=== PATIENT | female | born 1970 | race Caucasian/White ===

== ENCOUNTER 2016-03-19 21:14 | Emergency (ER) | payer OTHER ==
[~2016-03-19] VITALS: Ht 167.6 cm; Wt 117.5 kg
[~2016-03-19 21:14] MED LIST: ALBUAER19 INH; AMIT10TA6 PO; CITA20TA9 PO; CLOTCRE33 TOP; HYDR12.56 PO; IBUP-1427 PO; MULT-506 PO; NSNN50; OMEGCAP2 PO; ONDA4TAB46 PO; OXYC-643 PO; OXYC1TAB3 PO; PROM25TA PO; RANI150C4 PO
[2016-03-19 21:18] VITALS: TEMP 37.1; Ht 167.6 cm; Wt 117.5 kg
[2016-03-19] MEDS ORDERED: KETOROLAC TROMETHAMINE 30 MG/ML VIAL IV STA (21:58)
[2016-03-19] MEDS ORDERED: SODIUM CHLORIDE 0.9% 1000ML 1,000 ML IV ONE (22:00)
[2016-03-19] MEDS ORDERED: OPTIRAY 320 IV PRN (22:15)
[2016-03-19 22:31] LABS: BASO % 0.9 %; BASO ABS # 0.06 K/uL (0-0.2); COMPLETE YES; EOS % 3.8 %; HEMATOCRIT 40.4 % (37-47); IG% 0.1 %; LYMPH % 41.2 %; MEAN CELL VOLUME 93.5 fL (80-100); MEAN CORPUSCULAR HEMOGLOBIN 32.4 pg (25-34); MEAN CORPUSCULAR HGB CONC 34.7 g/dl (32-36); MEAN PLATELET VOLUME 9.2 fL (7.4-10.4); PLATELET COUNT 255 K/uL (130-400); RED BLOOD COUNT 4.32 M/uL (4.2-5.4); WHITE BLOOD COUNT 6.79 K/uL (4.8-10.8)
[2016-03-19 22:48] LABS: BUN/CREATININE RATIO 13.6 (10-20); CALCIUM 9.7 mg/dl (8.5-10.1); CREATININE 1.2 mg/dl (0.60-1.20); POTASSIUM 4.3 mmol/L (3.5-5.1)
[2016-03-19 22:59] LABS: ALB/GLOB RATIO 1.1 (0.9-2); THYROID STIMULATING HORMONE 1.93 uIu/ml (0.300-4.500)
[2016-03-20 00:49] LABS: URINE APPEARANCE CLEAR (CLEAR); URINE BILIRUBIN NEG (NEG); URINE COLOR YELLOW; URINE NITRITE NEG (NEG); URINE SPECIFIC GRAVITY > 1.045 (1.000-1.030); UROBILINOGEN NEG (NEG); ZZUR CULT IF INDIC CLEAN CATCH NO
[2016-03-20 00:52] LABS: MANUAL MICROSCOPIC REQUIRED? NO; REVIEW REQ? NO
[2016-03-20] MEDS ORDERED: PRED50TA PO (00:53)
[2016-03-20] MEDS ORDERED: AZIT250T PO (00:53)
[2016-03-20] MEDS ORDERED: NORCO 5/325MG HOME PACK PO ONE (01:00)
[2016-03-20] MEDS ORDERED: AZITHROMYCIN 250 MG TAB PO ONE (01:00)
[2016-03-20 01:10] VITALS: BP 149/87; PULSE 68; O2SAT 100
--- NOTE | 2016-03-20 04:32 | EMERGENCY ROOM VISIT NOTE ---
History First contact with patient: 21:48 Chief Complaint: OTHER COMPLAINT Stated Complaint: PAIN IN RT SIDE OF CHEST AND BACK History of Present Illness The patient is a 45 year old female who presents to the Emergency Room with complaints of right-sided chest and back pain that has worsened since about 9: 00 AM, roughly 13 hours ago. The patient states that she got her children to school, when she began having her discomfort. She was not doing anything at the time of onset. The patient has a history of Nathalie's disease, and has been doing physical therapy to assist with walking. She states that she has had difficulty with ambulation today, which is a change from baseline. Her chest and back pain worsens with certain positions and twisting. She has not had recent travel history or history of DVT/PE. Heart the patient is without fever, chills, shortness of breath, or abdominal pain. No radiation of her pain. She states at times it is sharp in nature. She has been using the bathroom as normal. She took tramadol about 6 hours ago without any relief of discomfort. She rates her current pain an 8/10. Review of Systems More than 10 systems were reviewed and otherwise negative with the exception of history of present illness. Past Medical/Surgical History Medical Problems: (1) Depression (2) Diabetes (3) Diabetes mellitus (4) HTN (hypertension) (5) Hyperlipidemia Family History Cancer Diabetes mellitus FHx: gallbladder disease Heart disease Hypertension Kidney disease Kidney stones Social History Smoking Status: Current Every Day Smoker Alcohol Use: occasionally Drug Use: none Marital Status: Occupation Status: employed Current/Historical Medications Scheduled Amantadine Hcl (Symmetrel), 100 MG PO TID Amitriptyline Hcl (Elavil), 10 MG PO HS Azithromycin (Zithromax), 250 MG PO DAILY Bupropion Hcl (Wellbutrin Sr), 150 MG PO BID Buspirone Hcl (Buspirone Hcl), 10 MG PO BID Calcium Carbonate (Tums), 500 MG PO TID Citalopram Hydrobromide (Celexa), 40 MG PO DAILY Dicyclomine Hcl (Bentyl), 10 MG PO TID Hydrochlorothiazide (Hctz), 12.5 MG PO DAILY Lisinopril (Prinivil), 5 MG DAILY Metformin Hcl (Glucophage), 500 MG PO BID Multivitamin (Multivitamin), 1 TAB PO DAILY York-3 Fatty Acids (Fish Oil), 1 CAP PO DAILY Prednisone (Prednisone), 50 MG PO DAILY Ranitidine Hcl (Ranitidine Hcl), 300 MG PO QAM Simvastatin (Zocor), 20 MG PO QAM Scheduled PRN Albuterol Inhaler (Ventolin Inhaler), 2 PUFFS INH Q4 PRN for SOB/Wheezing Clotrimazole W/ Betamethasone (Lotrisone), 1 APPLN TOP BID PRN for PRN Hydroxyzine Hcl (Atarax), 25 MG PO TID PRN for Anxiety Ibuprofen Tab (Motrin), 600 MG PO TID PRN for FOSTER/Cramping/Fever Mometasone Furoate (Nasal) (Nasonex), 2 SPRAY NA DAILY PRN for PRN Ondansetron Hcl (Zofran), 4 MG PO Q4H PRN for Nausea Oxycodone Hcl (Oxycodone Hcl), 5 MG PO Q4H PRN for Pain Oxycodone Ir (Roxicodone Ir), 1 TAB PO Q6H PRN for Pain Oxycodone/Acetaminophen 5MG/325MG (Oxycodone/Acetaminophen 5MG/325MG), 2 TABLETS PO Q4H PRN for Pain Promethazine (Phenergan), 25 MG PO Q6H PRN for Nausea or Vomiting Tramadol (Ultram), 50 MG PO Q4H PRN for Pain Allergies Coded Allergies: No Known Allergies (Verified , 04/19/15) Physical Exam Vital Signs Date Time Temp Pulse Resp B/P Pulse Ox O2 Delivery O2 Flow Rate FiO2 03/20/16 01:10 68 18 149/87 100 03/20/16 00:06 66 18 170/94 100 Room Air 03/19/16 22:52 75 20 140/96 95 Room Air 03/19/16 21:18 37.1 78 18 96 Room Air Physical Exam VITALS: Vitals are noted on the nurse's note and reviewed by myself. Vital signs stable. GENERAL: Well-developed, well-nourished, white female who does appear somewhat uncomfortable on examination. HEAD: Normocephalic atraumatic. NECK: Supple without nuchal rigidity. No lymphadenopathy. No thyromegaly. Cervical spine is nontender. HEART: Regular rate and rhythm without murmurs gallops or rubs. LUNGS: Clear to auscultation bilaterally without wheezes, rales or rhonchi. No retractions or accessory muscle use. CHEST WALL: No rash or lesions. No obvious palpable tenderness throughout the chest wall. ABDOMEN: Positive normal bowel sounds x 4. Soft, nontender, without masses or organomegaly. No guarding or rebound tenderness. MUSCULOSKELETAL: No muscle atrophy, erythema, or edema noted. Full range of motion without joint tenderness in all extremities. Negative Homans sign. Medical Decision & Procedures ER Provider Diagnostic Interpretation: Preliminary Findings Only See Final Report For Complete Findings CTA CHEST: Compared to 06/20/2012. No evidence of pulmonary embolism or aortic dissection. Mild peribronchial thickening. Tiny pulmonary nodules. No pneumothorax or pleural effusion. Laboratory Results 03/19/16 22:20 Red Blood Count 4.32, Mean Corpuscular Volume 93.5, Mean Corpuscular Hemoglobin 32.4, Mean Corpuscular Hemoglobin Concent 34.7, Mean Platelet Volume 9.2, Neutrophils (%) (Auto) 50.0, Lymphocytes (%) (Auto) 41.2, Monocytes (%) (Auto) 4.0, Eosinophils (%) (Auto) 3.8, Basophils (%) (Auto) 0.9, Neutrophils # (Auto) 3.39, Lymphocytes # (Auto) 2.80, Monocytes # (Auto) 0.27, Eosinophils # (Auto) 0.26, Basophils # (Auto) 0.06 03/19/16 22:20 Test 03/19/16 22:20 03/19/16 22:27 03/20/16 00:35 White Blood Count 6.79 K/uL (4.8-10.8) Red Blood Count 4.32 M/uL (4.2-5.4) Hemoglobin 14.0 g/dL (12.0-16.0) Hematocrit 40.4 % (37-47) Mean Corpuscular Volume 93.5 fL (80-100) Mean Corpuscular Hemoglobin 32.4 pg (25-34) Mean Corpuscular Hemoglobin Concent 34.7 g/dl (32-36) Platelet Count 255 K/uL (130-400) Mean Platelet Volume 9.2 fL (7.4-10.4) Neutrophils (%) (Auto) 50.0 % Lymphocytes (%) (Auto) 41.2 % Monocytes (%) (Auto) 4.0 % Eosinophils (%) (Auto) 3.8 % Basophils (%) (Auto) 0.9 % Neutrophils # (Auto) 3.39 K/uL (1.4-6.5) Lymphocytes # (Auto) 2.80 K/uL (1.2-3.4) Monocytes # (Auto) 0.27 K/uL (0.11-0.59) Eosinophils # (Auto) 0.26 K/uL (0-0.5) Basophils # (Auto) 0.06 K/uL (0-0.2) RDW Standard Deviation 48.3 fL (36.4-46.3) RDW Coefficient of Variation 14.1 % (11.5-14.5) Immature Granulocyte % (Auto) 0.1 % Immature Granulocyte # (Auto) 0.01 K/uL (0.00-0.02) Anion Gap 13.0 mmol/L (3-11) Est Creatinine Clear Calc Drug Dose 78.0 ml/min Estimated GFR () 63.7 Estimated GFR (Non- 54.9 BUN/Creatinine Ratio 13.6 (10-20) Calcium Level 9.7 mg/dl (8.5-10.1) Total Bilirubin 0.2 mg/dl (0.2-1) Aspartate Amino Transf (AST/SGOT) 11 U/L (15-37) Alanine Aminotransferase (ALT/SGPT) 26 U/L (12-78) Alkaline Phosphatase 85 U/L (45-117) Total Protein 7.3 gm/dl (6.4-8.2) Albumin 3.8 gm/dl (3.4-5.0) Globulin 3.5 gm/dl (2.5-4.0) Albumin/Globulin Ratio 1.1 (0.9-2) Lipase 234 U/L (73-393) Thyroid Stimulating Hormone (TSH) 1.930 uIu/ml (0.300-4.500) Bedside Troponin I 0.000 ng/ml (0-0.045) Urine Color YELLOW Urine Appearance CLEAR (CLEAR) Urine pH 5.0 (4.5-7.5) Urine Specific [place] > 1.045 (1.000-1.030) Urine Protein NEG (NEG) Urine Glucose (UA) NEG (NEG) Urine Ketones NEG (NEG) Urine Occult Blood NEG (NEG) Urine Nitrite NEG (NEG) Urine Bilirubin NEG (NEG) Urine Urobilinogen NEG (NEG) Urine Leukocyte Esterase NEG (NEG) Medications Administered Medications (Trade) Dose Ordered Sig/Rodolfo Route Start Time Stop Time Status Last Admin Dose Admin Sodium Chloride (Nss 1000ml) 1,000 ml @ 999 mls/hr Q1H1M ONCE IV 03/19/16 22:00 03/19/16 23:00 DC 03/19/16 22:51 999 MLS/HR Ketorolac Tromethamine (Toradol Inj) 30 mg NOW STAT IV 03/19/16 21:58 03/19/16 22:00 DC 03/19/16 22:51 30 MG Azithromycin (Zithromax Tab) 500 mg NOW ONCE PO 03/20/16 01:00 03/20/16 01:01 DC 03/20/16 01:05 500 MG Acetaminophen/ Hydrocodone Bitart (Gilsum 5/325mg Home Pack) 1 homepack UD ONCE PO 03/20/16 01:00 03/20/16 01:01 DC 03/20/16 01:05 1 HOMEPACK ED Course Physical exam and history were performed. Nursing notes and EMR were reviewed. Patient appears to have right-sided chest pain with a history of [place]'s disease. The patient symptoms do seem to be somewhat musculoskeletal, as certain positions exacerbate her discomfort. I'm not able to elicit any distinct palpable tenderness however. IV access was established and labs were obtained. EKG was normal sinus rhythm at 72 bpm without ischemia or ectopy. EKG is essentially unchanged from EKG of 04/19/2013. The patient was placed on the compliance monitor. She was hydrated with normal saline and given 30 mg IV Toradol for comfort. Because of her history and on nature of pain, I did elect for CT scan of the chest with contrast. The patient was reevaluated multiple times in the course of her stay. Her blood work is as above and was reviewed. She does not have a significantly elevated white blood cell count, anemia, bandemia, or gross electrolyte imbalance. Troponin 1 is negative. Lipase and transaminases are nondiagnostic. CT scan of her chest does not show evidence of pulmonary embolism or pneumonia. There is some mild peribronchial thickening. TSH is normal. Urine is without obvious signs of infection. Overall the patient appears stable for discharge home. I suspect that her symptoms may be related to a musculoskeletal cause, or possibly an early bronchitis. Because of her comorbidities I will start her on Zithromax and prednisone. She will need close follow-up with primary care physician, and I recommended that she be seen in the next 1-2 days in her PCPs office. She was thoroughly invited to the emergency department again if she has any worsening of her symptoms. The patient voiced understanding of this plan and was pleased with plan of care. She was discharged home with family in good condition. The chart was completed utilizing [employer] Speech Voice Recognition Software. Grammatical errors, random word insertions, pronoun errors, and incomplete sentences are an occasional consequence of this system due to software limitations, ambient noise, and hardware issues. Any formal questions or concerns about the content, text, or information contained within the body of this dictation should be directly addressed to the provider for clarification. . Medical Decision Differential diagnosis includes, but is not limited to: Myocardial infarction, dysrhythmia, pericarditis, pneumothorax, aortic aneurysm/dissection, DVT/PE, anxiety, GERD, PUD, electrolyte imbalance, thyroid disorder, pneumonia, bronchitis, pancreatitis, and others Impression Primary Impression: Right-sided chest pain Departure Information Prescriptions Prednisone (Prednisone) 50 Mg Tab 50 MG PO DAILY for 4 Days, #4 TAB Prov: Elías Mane PA-C 03/20/16 Azithromycin (Zithromax) 250 Mg Tab 250 MG PO DAILY for 4 Days, #4 TAB Prov: Elías Mane PA-C 03/20/16 Referrals aMndi Johnson M.D. (PCP) Patient Instructions My [facility]
--- NOTE | 2016-03-20 07:13 | DIAGNOSTIC IMAGING REPORT ---
CT ANGIOGRAM OF THE CHEST CLINICAL HISTORY: Right-sided chest pain. Suspected pulmonary embolism. COMPARISON STUDY: 06/20/2012 TECHNIQUE: Following the IV administration of 92 mL of Optiray-320, CT angiogram of the thorax was performed from the thoracic inlet to the lung bases utilizing the pulmonary embolus protocol. Images are reviewed in the axial, sagittal, and coronal planes. IV contrast was administered without complication. MIP imaging was performed. CT DOSE: 759.77 mGy.cm FINDINGS: No pathologically enlarged axillary mediastinal or hilar lymph nodes were visualized. There was no evidence of thoracic aortic dilatation. There were no pulmonary artery filling defects to indicate acute pulmonary embolism. No pleural effusions are visualized. There is no evidence of focal pulmonary consolidation. There is a 3 mm right middle lobe perifissural nodule. This remain stable. There is a 3 mm right upper lobe pulmonary nodule image #[id number]. This was not visualized the prior study. There is a 3 mm left lower lobe pulmonary nodule image #[id number]. This remain stable. IMPRESSION: 1. No CT evidence of acute pulmonary embolism 2. Bilateral 3 mm pulmonary nodules. The right upper lobe 3 mm nodule was not visualized on the prior 2013 study. In a low risk patient, no further follow-up is needed. In a high risk patient, 12 month follow-up would be recommended. 3. No evidence of focal pulmonary consolidation Please refer to below summary of Fleischner criteria recommendations for follow-up of incidental CT nodules (Marie Colunga, Guidelines for management of small pulmonary nodules detected on CT scans: A statement from the Fleischner Society, Radiology 237: [phone].) Low Risk Patient: Minimal or no smoking or other known risk factors for malignancy <=4 mm: No follow-up needed. >4-6 mm: Initial follow-up CT at 12 months; if unchanged, no further follow-up. >6-8 mm: Initial follow-up CT at 6-12 months then at 18-24 months if no change. >8 mm: Follow-up CT at \R\3, 9, 24 months, or PET and/or biopsy. High Risk Patient: History of smoking or other known risk factors <=4 mm: Follow-up at 12 months; if unchanged, no further follow-up. >4-6 mm: Initial follow-up CT at 6-12 months then at 18-24 months if no change. >6-8 mm: Initial follow-up CT at 3-6 months then at 9-12 and 24 months if no change. >8 mm: Same as low risk patient. Note: Nodule size measured as average of length and width. Ground glass or partly solid nodules may require longer follow-up to exclude indolent adenocarcinoma. Electronically signed by: Lm Rizo M.D. 03/20/2016 7:11 AM Dictated Date/Time: 03/20/2016 7:03 AM
[2016-03-23] MEDS ORDERED: OXYC1CAP5 PO (09:27)
[2016-03-23] MEDS ORDERED: SIMV20TA2 PO (09:43)
[2016-03-23] MEDS ORDERED: BUPR150T7 PO (10:55)
[2016-03-23] MEDS ORDERED: LISI5TAB PO (10:55)
[2016-03-23] MEDS ORDERED: GLC/500 PO (10:55)
[2016-03-23] MEDS ORDERED: CALC500C3 PO (10:55)
[2016-03-23] MEDS ORDERED: AMAN100T PO (20:26)
[2016-03-23] MEDS ORDERED: TRAM-10 PO (20:26)
[2016-03-23] MEDS ORDERED: HYDR-389 PO (20:27)
[2016-03-23] MEDS ORDERED: DICY10CA55 PO (20:32)
[2016-03-23] MEDS ORDERED: BUSP-8 PO (20:32)
== END 2016-03-20 01:10 | disposition home or self-care (01) ==
LOC: C.EDB 21:15 → C.EDA 03-20 01:10
DX: R07.9 Chest pain, unspecified (principal); G10 Huntington's disease; F32.9 Major depressive disorder, single episode, unspecified; E11.9 Type 2 diabetes mellitus without complications; I10 Essential (primary) hypertension; E78.5 Hyperlipidemia, unspecified; Z83.3 Family history of diabetes mellitus; Z82.49 Family history of ischemic heart disease and other diseases of the circulatory system; F17.210 Nicotine dependence, cigarettes, uncomplicated; Z79.899 Other long term (current) drug therapy

== ENCOUNTER 2016-03-23 20:46 | Emergency (ER) | payer OTHER ==
[~2016-03-23] VITALS: Ht 167.6 cm; Wt 113.0 kg
[~2016-03-23 20:46] MED LIST changes: +AMAN100T PO; +AZIT250T PO; +BUPR150T7 PO; +BUSP-8 PO; +CALC500C3 PO; +DICY10CA55 PO; +GLC/500 PO; +HYDR-389 PO; +LISI5TAB PO; +OXYC1CAP5 PO; +PRED50TA PO; +SIMV20TA2 PO; +TRAM-10 PO
[2016-03-23 20:54] VITALS: Ht 167.6 cm; Wt 113.0 kg
[2016-03-23] MEDS ORDERED: PROM25TA16 PO (21:35)
[2016-03-23] MEDS ORDERED: FLUT0.15 NAE (21:35)
[2016-03-23] MEDS ORDERED: PANT40TA PO (21:35)
[2016-03-23] MEDS ORDERED: DOCU100C31 PO (21:35)
[2016-03-23] MEDS ORDERED: PRVHFAIN INH (21:35)
[2016-03-23] MEDS ORDERED: ESCI10TA17 PO (21:35)
[2016-03-23] MEDS ORDERED: GABA-112 PO (21:35)
[2016-03-23] MEDS ORDERED: POLY1POW2 PO (21:35)
[2016-03-23] MEDS ORDERED: RISP0.5T10 PO ×2 (21:35)
[2016-03-23] MEDS ORDERED: RANI300T PO (21:35)
[2016-03-23 22:10] LABS: BASO % 0.1 %; BASO ABS # 0.01 K/uL (0-0.2); COMPLETE YES; HEMATOCRIT 38.4 % (37-47); IG% 0.3 %; LYMPH % 7.4 %; LYMPH ABS # 0.69 K/uL (1.2-3.4); MEAN CELL VOLUME 91.9 fL (80-100); MEAN CORPUSCULAR HEMOGLOBIN 31.8 pg (25-34); MEAN CORPUSCULAR HGB CONC 34.6 g/dl (32-36); MEAN PLATELET VOLUME 9.6 fL (7.4-10.4); MONO % 0.9 %; NEUT % 91.3 %; PLATELET COUNT 263 K/uL (130-400); RED BLOOD COUNT 4.18 M/uL (4.2-5.4); WHITE BLOOD COUNT 9.33 K/uL (4.8-10.8)
--- NOTE | 2016-03-23 22:25 | DIAGNOSTIC IMAGING REPORT ---
ULTRASOUND VENOUS DOPP LOWER EXT UNILAT CLINICAL HISTORY: Right leg swelling. COMPARISON STUDY: No previous studies for comparison. FINDINGS: Real-time and color flow Doppler imaging were performed. Flow was seen within the femoral, popliteal and calf veins with no intraluminal thrombus demonstrated. The saphenous vein is patent. IMPRESSION: No evidence of right lower extremity DVT. Electronically signed by: Lm Rizo M.D. 03/23/2016 10:24 PM Dictated Date/Time: 03/23/2016 10:23 PM
[2016-03-23 22:33] LABS: ALB/GLOB RATIO 1.1 (0.9-2); ALKALINE PHOSPHATASE 87 U/L (45-117); ALT/SGPT 24 U/L (12-78); BLOOD UREA NITROGEN 17 mg/dl (7-18); BUN/CREATININE RATIO 14.2 (10-20); CALCIUM 8.9 mg/dl (8.5-10.1); CARBON DIOXIDE 24 mmol/L (21-32); CHLORIDE 102 mmol/L (98-107); GLUCOSE 322 mg/dl (70-99); SODIUM 139 mmol/L (136-145)
[2016-03-23 22:43] LABS: BETA-HYDROXYBUTYRATE 1.32 mg/dL (0.2-2.81)
[2016-03-23 23:24] LABS: PARTIAL THROMBOPLASTIN RATIO 0.9; PROTHROMBIN TIME (PATIENT) 10.2 SECONDS (9.0-12.0)
[2016-03-23 23:57] LABS: MAGNESIUM 2.1 mg/dl (1.8-2.4); POTASSIUM 4.6 mmol/L (3.5-5.1)
[2016-03-24 00:49] VITALS: BP 133/78; PULSE 77; TEMP 36.8; O2SAT 96
--- NOTE | 2016-03-24 04:41 | EMERGENCY ROOM VISIT NOTE ---
History First contact with patient: 21:24 Chief Complaint: SWELLING TO EXTREMITY Stated Complaint: PAIN AND SWELLING IN RIGHT LEG History of Present Illness The patient is a 45 year old female who presents to the Emergency Room with complaints of right pain and swelling for the past week who was here the other day had a negative CTA. Patient is concerned she has a blood clot in the right leg. Patient has Nathalie's disease. Patient denies chest pain, dyspnea, fever, chills, numbness, tingling, dysphagia, localized weakness. No recent travel. She does smoke. No control. No history of PE or DVT. No injury to the area. Review of Systems See HPI for pertinent positives & negatives. A total of 10 systems reviewed and were otherwise negative. Past Medical/Surgical History Medical Problems: (1) Depression (2) Diabetes (3) Diabetes mellitus (4) HTN (hypertension) (5) Hyperlipidemia Family History Cancer Diabetes mellitus FHx: gallbladder disease Heart disease Hypertension Kidney disease Kidney stones Social History Smoking Status: Current Every Day Smoker Alcohol Use: occasionally Drug Use: none Marital Status: Occupation Status: employed Current/Historical Medications Scheduled Amantadine Hcl (Symmetrel), 100 MG PO TID Bupropion Hcl (Wellbutrin Sr), 150 MG PO DAILY Buspirone Hcl (Buspirone Hcl), 10 MG PO BID Calcium Carbonate (Tums), 500 MG PO TID Dicyclomine Hcl (Bentyl), 10 MG PO HOLD Escitalopram (Lexapro), 10 MG PO DAILY Gabapentin (Neurontin), 100 MG PO TID Lisinopril (Prinivil), 5 MG PO DAILY Metformin Hcl (Glucophage), 500 MG PO BIDM Pantoprazole (Protonix), 40 MG PO DAILY Ranitidine Hcl (Zantac), 300 MG PO BID Risperidone (Risperdal), 0.25 MG PO QAM Risperidone (Risperdal), 0.5 MG PO HS Simvastatin (Zocor), 20 MG PO HS Scheduled PRN Albuterol (Ventolin Hfa), 2 PUFFS INH QID PRN for SOB/Wheezing Docusate Sodium (Docusate Sodium), 200 MG PO DAILY PRN for Constipation Fluticasone Propionate (Nasal) (Flonase Allergy Relief), 2 SPRAYS BRITTANY DAILY PRN for Allergy symptoms Hydroxyzine Hcl (Atarax), 25 MG PO TID PRN for Anxiety Oxycodone Hcl (Oxycodone Hcl), 5 MG PO Q4H PRN for Pain Polyethylene Glycol 3350 (Bulk (Polyethylene Glycol 3350), 17 GM PO DAILY PRN for Constipation Promethazine HCl (Promethazine HCl), 25 MG PO Q6H PRN for Nausea Tramadol (Ultram), 50 MG PO Q8 PRN for Pain Allergies Coded Allergies: No Known Allergies (Verified , 04/19/15) Physical Exam Vital Signs Date Time Temp Pulse Resp B/P Pulse Ox O2 Delivery O2 Flow Rate FiO2 03/24/16 00:49 36.8 77 18 133/78 96 03/24/16 00:48 77 18 133/78 96 Room Air 03/23/16 23:42 77 18 161/91 96 Room Air 03/23/16 22:39 Room Air 03/23/16 20:54 36.8 79 18 167/93 96 Room Air Pain Rating (0-10): 4.0 Physical Exam VITALS: Vitals are noted on the nurse's note and reviewed by myself. Vital signs stable. GENERAL: Pleasant female, in no acute distress, nondiaphoretic, well-developed well-nourished. SKIN: Capillary reflex less than 2 seconds. HEENT: Normocephalic. PERRLA. EOMI. Nares patent. Mucous membranes moist. Neck is supple without nuchal rigidity. HEART: Regular rate and rhythm without murmurs gallops or rubs. LUNGS: Clear to auscultation bilaterally without wheezes, rales or rhonchi. No retractions or accessory muscle use. ABDOMEN: Positive bowel sounds x 4. Normal tympanic percussion. Soft, nontender, without masses or organomegaly. Andino sign negative. No guarding or rebound tenderness. MUSCULOSKELETAL: No gross musculoskeletal defects. No pedal edema. Right calf tenderness with minimal edema present. NEURO: Patient was alert and oriented to person place and time. Normal sensation to light and sharp touch. No focal neurological deficits. Medical Decision & Procedures Laboratory Results 03/23/16 22:00 Red Blood Count 4.18, Mean Corpuscular Volume 91.9, Mean Corpuscular Hemoglobin 31.8, Mean Corpuscular Hemoglobin Concent 34.6, Mean Platelet Volume 9.6, Neutrophils (%) (Auto) 91.3, Lymphocytes (%) (Auto) 7.4, Monocytes (%) (Auto) 0.9, Eosinophils (%) (Auto) 0.0, Basophils (%) (Auto) 0.1, Neutrophils # (Auto) 8.52, Lymphocytes # (Auto) 0.69, Monocytes # (Auto) 0.08, Eosinophils # (Auto) 0.00, Basophils # (Auto) 0.01 03/23/16 22:00 03/23/16 23:00 Test 03/23/16 22:00 03/23/16 23:00 White Blood Count 9.33 K/uL (4.8-10.8) Red Blood Count 4.18 M/uL (4.2-5.4) Hemoglobin 13.3 g/dL (12.0-16.0) Hematocrit 38.4 % (37-47) Mean Corpuscular Volume 91.9 fL (80-100) Mean Corpuscular Hemoglobin 31.8 pg (25-34) Mean Corpuscular Hemoglobin Concent 34.6 g/dl (32-36) Platelet Count 263 K/uL (130-400) Mean Platelet Volume 9.6 fL (7.4-10.4) Neutrophils (%) (Auto) 91.3 % Lymphocytes (%) (Auto) 7.4 % Monocytes (%) (Auto) 0.9 % Eosinophils (%) (Auto) 0.0 % Basophils (%) (Auto) 0.1 % Neutrophils # (Auto) 8.52 K/uL (1.4-6.5) Lymphocytes # (Auto) 0.69 K/uL (1.2-3.4) Monocytes # (Auto) 0.08 K/uL (0.11-0.59) Eosinophils # (Auto) 0.00 K/uL (0-0.5) Basophils # (Auto) 0.01 K/uL (0-0.2) RDW Standard Deviation 47.3 fL (36.4-46.3) RDW Coefficient of Variation 14.0 % (11.5-14.5) Immature Granulocyte % (Auto) 0.3 % Immature Granulocyte # (Auto) 0.03 K/uL (0.00-0.02) Anion Gap 13.0 mmol/L (3-11) Est Creatinine Clear Calc Drug Dose 76.3 ml/min Estimated GFR () 63.7 Estimated GFR (Non- 54.9 BUN/Creatinine Ratio 14.2 (10-20) Calcium Level 8.9 mg/dl (8.5-10.1) Total Bilirubin 0.2 mg/dl (0.2-1) Alanine Aminotransferase (ALT/SGPT) 24 U/L (12-78) Alkaline Phosphatase 87 U/L (45-117) Total Protein 7.1 gm/dl (6.4-8.2) Albumin 3.7 gm/dl (3.4-5.0) Globulin 3.4 gm/dl (2.5-4.0) Albumin/Globulin Ratio 1.1 (0.9-2) Beta-Hydroxybutyric Acid 1.32 mg/dL (0.2-2.81) Prothrombin Time 10.2 SECONDS (9.0-12.0) Prothromb Time International Ratio 1.0 (0.9-1.1) Activated Partial Thromboplast Time 24.4 SECONDS (21.0-31.0) Partial Thromboplastin Ratio 0.9 Magnesium Level 2.1 mg/dl (1.8-2.4) Aspartate Amino Transf (AST/SGOT) 10 U/L (15-37) Total Creatine Kinase 64 U/L (26-192) Chemistry Specimen Hemolysis ED Course Prior records reviewed and summarized above. Triage Nursing notes reviewed. Additional history obtained from the family. The patient's history was concerning for swelling and pain in the leg. Differential diagnosis: Etiologies such as DVT, musculoskeletal, infection, joint effusion, trauma, lymphedema, idiopathic, CHF, as well as others were entertained.. Physical examination: The physical examination revealed no signs of infection. Neurovascularly intact. ER treatment provided: Da aguilar On reassessment the patient felt better. Diagnostics interpreted by me: The labs revealed hyperglycemia without DKA. No leukocytosis Imaging studies: ULTRASOUND VENOUS DOPP LOWER EXT UNILAT CLINICAL HISTORY: Right leg swelling. COMPARISON STUDY: No previous studies for comparison. FINDINGS: Real-time and color flow Doppler imaging were performed. Flow was seen within the femoral, popliteal and calf veins with no intraluminal thrombus demonstrated. The saphenous vein is patent. IMPRESSION: No evidence of right lower extremity DVT. Electronically signed by: Lm Rizo M.D. 03/23/2016 10:24 PM This appears to be consistent with minimal leg swelling. No DVT. Hyperglycemia without DKA. She was fitted with DA hose and advised to follow- up with family care in a few days or here in the ER sooner for severe pain, numbness, tingling, fevers, worsening signs or symptoms or as needed. Patient was neurovascularly and neurologically intact. She was well-appearing. By the evaluation outlined above emergent etiologies such as DVT, septic joint, trauma , infection, CHF, as well as others were deemed relatively unlikely. The pt informed about the findings as listed above. All questions were answered and pleased with the treatment. Return instructions were outlined and the patient was discharged in stable condition. Referral: The patient was referred back to their primary care physician for follow-up in 2 to 3 days for a recheck of the current condition. Medical Decision As above Impression Primary Impression: Swelling of right lower extremity Additional Impression: hyperglycemia Departure Information Dispostion Home / Self-Care Condition GOOD Forms WORK / SCHOOL INSTRUCTIONS, HOME CARE DOCUMENTATION FORM, IMPORTANT VISIT INFORMATION Patient Instructions Hyperglycemia, [facility] [employer] Additional Instructions Monitor your blood sugar. Wear DA hose when up and about. Ibuprofen(Motrin, Advil) may be used for fever or pain. Use 600mg every six hours as needed. Take with food. Avoid using more than 2400mg in a 24 hour period. Do not use 2400mg per day for more than three consecutive days without physician direction. Prolonged inappropriate use can lead to stomach upset or ulcers. (AND/OR) Acetaminophen(Tylenol) may be used for fever or pain. Use 1000mg every six hours as needed. Avoid using more than 3000mg in a 24 hour period. Rest and drink plenty of fluids as tolerated. Continue current medications. Avoid strenuous activities and anything that worsens your pain. Resume normal activities once your symptoms resolve. Return to the ER immediately for worsening or persistent leg pain, abdominal pain, vomiting, fevers, chest pains, difficulty breathing, worsening of your condition, or as needed. Follow up with your primary physician in 2-3 days for a recheck of your current condition. Problem Qualifiers
== END 2016-03-24 00:50 | disposition home or self-care (01) ==
LOC: C.EDB 20:47 → C.EDC 03-24 00:50
DX: R22.41 Localized swelling, mass and lump, right lower limb (principal); E11.65 Type 2 diabetes mellitus with hyperglycemia; I10 Essential (primary) hypertension; E78.5 Hyperlipidemia, unspecified; F32.9 Major depressive disorder, single episode, unspecified; F17.200 Nicotine dependence, unspecified, uncomplicated; Z79.84 Long term (current) use of oral hypoglycemic drugs; Z79.899 Other long term (current) drug therapy; Z80.9 Family history of malignant neoplasm, unspecified; Z83.3 Family history of diabetes mellitus; Z83.79 Family history of other diseases of the digestive system; Z82.49 Family history of ischemic heart disease and other diseases of the circulatory system; Z84.1 Family history of disorders of kidney and ureter

== ENCOUNTER 2021-08-03 13:14 | Inpatient (IN) ==
[2021-08-03] MEDS ORDERED: SODIUM CHLORIDE 0.9% 1000ML 1,000 ML IV ONE (13:41)
[2021-08-03] MEDS ORDERED: ONDANSETRON INJ 2 MG/ML 2 ML VIAL IV STA (14:01)
[2021-08-03] MEDS ORDERED: ALBUT/IPRATROP 3MG/0.5MG NEB 3 ML VIAL NEB STA (14:01)
[2021-08-03] MEDS ORDERED: guaiFENesin 600 MG TABCR PO STA (14:01)
[2021-08-03] MEDS ORDERED: dexAMETHasone**PF** 10 MG/ML VIAL IV ONE (14:01)
[2021-08-03 14:03] LABS: Basophils # (auto) 0.01 K/uL (0-0.2); Basophils % (auto) 0.2 %; Eosinophils # (auto) 0.23 K/uL (0-0.5); Eosinophils % (auto) 3.8 %; Hematocrit (blood only) 28.7 % (37-47); Hemoglobin 8.8 g/dL (12.0-16.0); Immature Granulocytes # (auto) 0.01 K/uL (0.00-0.02); Immature Granulocytes % (auto) 0.2 %; Lymphocytes # (auto) 1.05 K/uL (1.2-3.4); Lymphocytes % (auto) 17.3 %; Mean Corpuscular Hemoglobin 23.7 pg (25-34); Mean Corpuscular Hgb Conc 30.7 g/dL (32-36); Mean Corpuscular Volume 77.2 fL (80-100); Mean Platelet Volume 8.7 fL (7.4-10.4); Monocytes # (auto) 0.48 K/uL (0.11-0.59); Monocytes % (auto) 7.9 %; Neutrophils # (auto) 4.29 K/uL (1.4-6.5); Neutrophils % (auto) 70.6 %; Platelet Count 254 K/uL (130-400); RDW Coefficient of Variation 19.9 % (11.5-14.5); RDW Standard Deviation 56.5 fL (36.4-46.3); Red Blood Count 3.72 M/uL (4.2-5.4); White Blood Count 6.07 K/uL (4.8-10.8)
--- NOTE | 2021-08-03 14:19 | XRay Report ---
XR chest 1V portable HISTORY: 51 years-old Female Chest Pain acute atypical chest pain COMPARISON: CT chest 03/19/2016 TECHNIQUE: Portable AP view of the chest FINDINGS: The cardiac silhouette is mildly enlarged. No pneumothorax, pleural effusion or overt pulmonary edema . Ill-defined 5.3 cm airspace opacity of the lateral right mid to lower lung. Bones appear grossly in tact. IMPRESSION: Ill-defined 5.3 cm airspace opacity of the lateral right mid to lower lung suspicious for pneumonia. Follow-up imaging after treatment course is recommended to exclude an underlying lesion. ACT 112: Negative or not required by law. The above report was generated using voice recognition software. It may contain grammatical, syntax o r spelling errors. Electronically signed by: Tuan Quintana M.D. 08/03/2021 2:18 PM
[2021-08-03 14:47] LABS: Influenza A virus by PCR Negative (Neg); Influenza B virus by PCR Negative (Neg); RSV by PCR Negative (Neg); SARS CoV2 RNA(COVID-19) InHosp NEGATIVE (Negative)
[2021-08-03 14:48] LABS: Troponin I High Sensitivity 14.6 pg/ml (0-14)
[2021-08-03 14:50] LABS: Alanine Aminotransferase 7 U/L (7-52); Albumin Level 3.6 gm/dl (3.4-5.0); Alkaline Phosphatase 93 U/L (34-104); Anion Gap 7 (3-11); Aspartate Aminotransferase 8 U/L (13-39); BUN Creatinine Ratio 8.6 (10-20); Bilirubin,Total 0.4 mg/dl (0.2-1.0); Blood Urea Nitrogen 12 mg/dl (6-23); Calcium 9.1 mg/dl (8.5-10.1); Carbon Dioxide 27 mmol/L (21-32); Chloride 101 mmol/L (98-107); Est GFR (African American) 50.6 ml/min; Est GFR (Non-African American) 43.7 ml/min; Globulin 3.5 gm/dl (2.5-4.0); Glucose 158 mg/dl (70-99(Fasting)); Lipase 25 U/L (11-82); Phosphorus 3.7 mg/dl (2.5-4.9); Potassium 3.7 mmol/L (3.5-5.1); Sodium 135 mmol/L (136-145); Total Protein 7.1 gm/dl (6.0-8.3)
[2021-08-03] MEDS ORDERED: AZITHROMYCIN 500 MG in DEXTROSE 5% 250 ML IV STA (17:02)
[2021-08-03] MEDS ORDERED: cefTRIAXone SODIUM 2,000 MG/70 ML BAG IV STA (17:02)
--- NOTE | 2021-08-03 17:36 | Emergency Department Note ---
Impression & Plan Pneumonia, COPD (chronic obstructive pulmonary disease), Complete left bundle branch block, Elevated troponin, CKD (chronic kidney disease), stage III ED Provider Note NAME: SAVANA BROWNING AGE: 51 SEX: F ARRIVES VIA: Walk-In INFORMANT: Patient, ED PROVIDER(S): Jean Claude Toro MD CHIEF COMPLAINT: SOB PLAN: Disposition: Admit MEDICAL DECISION MAKING: The patient is a pleasant 51-year-old woman with a past medical history of COPD, diabetes, hypertension, hyperlipidemia, Bostwick disease who presents to the emegency department accompanied by her for evaluation of worsening shortness of breath with cough and productive sputum over the past several days. She denies any fevers, nausea, vomiting, diarrhea or urinary symptoms. She is vaccinated for COVID-19 including her booster. On arrival the patient is uncomfortable mildly dyspneic but no acute distress, afebrile with HR 90s and otherwise stable vital signs. She has dry mucous membranes but chronic bilateral lower extremity edema. Lungs with diffuse wheezes bilaterally. Mild increased work of breathing. EKG demonstrates left bundle branch block which per review of records does appear to be new. No sgarbossa criteria. Unlikely to represent ACS given the patient has no acute onset chest pain. Chest x-ray is suspicious for pneumonia with consolidation of right mid-lower lobe. WBC and platelets within normal limits. H/H approximate to prior range of values. Creatinine 1.4, similar to prior values. Electrolytes without significant abnormality. LFTs unremarkable. High-sensitivity troponin marginally elevated at 14.6, nonspecific. Lipase not elevated. Upon reevaluation patient did feel somewhat improved after IV fluid hydration, Solu- Medrol Covid-19 PCR negative. Influenza and RSV PCR negative., DuoNeb, guaifenesin and Zofran. However she did still appear mildly dyspneic. Given the patient's COPD with chest x-ray demonstrated pneumonia the patient did agree with plan for admission for further management. Case was discussed with Leila Isbell, [place] PAC, with Dr. Thad Kumari hospitalist who will evaluate the patient for admission. Triage Nursing notes reviewed and agree them. Prior medical records reviewed Vital Signs: reviewed and remarkable for no significant abnormalities Differential diagnosis: Reactive airway disease, pneumonia, pneumothorax, COPD, CHF, infections, cardiac ischemia, pulmonary embolism, musculoskeletal, gastrointestinal, as well as other pathologies. ER treatment provided: See below. Diagnostics interpreted by me: ECG: Normal sinus rhythm, 87 bpm, no ectopy, left bundle branch block, no sgarbossa criteria. Left bundle branch block is new from EKG in 2019 and [facility] records. Cardiac Monitoring: An order for continuous cardiac monitoring was placed and demonstrated normal sinus rhythm, 87 bpm, no ectopy. Laboratory studies: See below Imaging studies: See below Consultation(s): Leila Isbell, [facility] PAC, with Dr. Thad Kumari hospitalist HPI: The patient is a pleasant 51-year-old woman with a past medical history of COPD, diabetes, hypertension, hyperlipidemia, Bostwick disease who presents emerged department accompanied by her for evaluation of worsening shortness of breath with cough and productive sputum over the past several days. She denies any fevers, nausea, vomiting, diarrhea or urinary symptoms. She is vaccinated for COVID-19 including her booster. ROS: See above HPI for pertinent positives & negatives. A total of 10 systems reviewed and were otherwise negative. VITALS:See Below PHYSICAL EXAMINATION: GENERAL: Awake, alert, ill-appearing, in no distress HENT: Normocephalic, atraumatic. Oropharynx with dry mucous membranes and otherwise unremarkable. EYES: Normal conjunctiva. Sclera non-icteric. NECK: Supple. No nuchal rigidity. FROM. No JVD. RESPIRATORY: Diffuse wheezes bilaterally. Mild increased work of breathing but no acute distress. CARDIAC: Regular rate, normal rhythm. Extremities warm and well perfused. Pulses equal. ABDOMEN: Soft, non-distended. No tenderness to palpation. No rebound or guarding. No masses. RECTAL: Deferred. MUSCULOSKELETAL: Chest examination reveals no tenderness. The back is symmetrical on inspection without obvious abnormality. There is no CVA tenderness to palpation. No joint edema. LOWER EXTREMITIES: Calves are equal size bilaterally and non-tender. 2+ BLE edema. No discoloration. NEURO: Masked facies. No focal sensory or motor deficits noted. SKIN: No rash or jaundice noted. 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 Father Family history of diabetes mellitus Social History Smoking Status: Current every day smoker Tobacco Type: Cigarettes Cigarettes Per Day: 1/2 - 1 ppd; Second Hand Exposure: Yes (MOTHER SMOKED); Hx Alcohol Use: No Hx Substance Use: No Preferred Language: Nauruan Communication Ability: Effective Media Developer Required: No Beliefs That Will Affect Care: None Current Living Situation: Spouse and Family Feels Safe at Home: Yes Assistive Devices: Glasses Allergies Allergies Allergy/AdvReac Type Severity Reaction Status Date / Time No Known Allergies Allergy Verified 08/03/21 15:01 Home Meds Home Medications Medication Instructions Recorded Confirmed albuterol sulfate 90 mcg/actuation 2 puff INHALATION QID PRN 12/14/19 08/03/21 aerosol inhaler (Ventolin HFA) amantadine HCl 100 mg capsule 100 mg PO TID 12/14/19 08/03/21 aspirin 81 mg tablet,delayed 81 mg PO HS 12/14/19 08/03/21 release bupropion HCl 150 mg 24 hr tablet, 150 mg PO QAM 12/14/19 08/03/21 extended release (Wellbutrin XL) buspirone 30 mg tablet 30 mg PO QAM 12/14/19 08/03/21 calcium carbonate 200 mg calcium 200 mg PO TID PRN 12/14/19 08/03/21 (500 mg) chewable tablet (Tums) escitalopram oxalate 10 mg tablet 10 mg PO QAM 12/14/19 08/03/21 (Lexapro) fluticasone propionate 50 2 spray INTRANASAL QAM 12/14/19 08/03/21 mcg/actuation nasal spray,suspension (Flonase Allergy Relief) gabapentin 300 mg capsule 300 mg PO TID 12/14/19 08/03/21 (Neurontin) hydroxyzine HCl 25 mg tablet 25 mg PO BID 12/14/19 08/03/21 lorazepam 1 mg tablet 1 mg PO DAILY PRN 12/14/19 08/03/21 pantoprazole 20 mg tablet,delayed 20 mg PO QAM 12/14/19 08/03/21 release (Protonix) polyethylene glycol 3350 17 gram 17 g PO DAILY PRN 12/14/19 08/03/21 oral powder packet (Miralax) promethazine 25 mg tablet 25 mg PO QID PRN 12/14/19 08/03/21 simvastatin 20 mg tablet 20 mg PO HS 12/14/19 08/03/21 tramadol 50 mg tablet 50 mg PO Q8H PRN 12/14/19 08/03/21 cholecalciferol (vitamin D3) 125 5,000 unit PO DAILY 08/03/21 08/03/21 mcg (5,000 unit) tablet (Vitamin D3) famotidine 40 mg tablet 40 mg PO HS 08/03/21 08/03/21 glipizide 5 mg tablet 10 mg PO DAILYBB 08/03/21 08/03/21 glipizide 5 mg tablet 15 mg PO DAILYBD 08/03/21 08/03/21 risperidone 0.25 mg tablet 0.25 mg PO DAILY 08/03/21 08/03/21 risperidone 1 mg tablet 1 mg PO HS 08/03/21 08/03/21 semaglutide (Ozempic) 0.25 mg SUBCUT UD 08/03/21 08/03/21 Results & Data (ED) Vital Signs Vital Signs - 24 hr 08/03/21 13:18 08/03/21 18:00 Temperature 36.7 C Temperature Source Temporal Artery Scan Pulse Rate 96 H Pulse Rate [Right Finger] 79 Pulse Rhythm [Right Finger] Regular Pulse Strength [Right Finger] Normal Respiratory Rate 20 18 Respiratory Effort / Characteristics Non-Labored Spontaneous Non-Labored Respiratory Depth Normal Normal Respiratory Pattern Regular Regular Blood Pressure 125/78 Blood Pressure [Right Arm] 124/79 Blood Pressure Mean 93 Blood Pressure Mean [Right Arm] 94 Blood Pressure Position [Right Arm] Lying Pulse Oximetry 95 94 Oxygen Delivery Method Room Air Room Air Sepsis Recent Fever Within 48 Hours No Sepsis New/Unexplained Change in Mental Status No Sepsis Action Taken by Nursing No Action Required Laboratory Data Attestation: I reviewed the patient's lab results. Result diagrams: 08/03/21 13:46 08/03/21 13:46 Lab Results 08/03/21 08/03/21 08/03/21 Range/Units 13:46 13:46 13:51 WBC 6.07 (4.8-10.8) K/uL RBC 3.72 L (4.2-5.4) M/uL Hgb 8.8 L (12.0-16.0) g/dL Hct 28.7 L (37-47) % MCV 77.2 L (80-100) fL MCH 23.7 L (25-34) pg MCHC 30.7 L (32-36) g/dL RDW Std Deviation 56.5 H (36.4-46.3) fL RDW Coeff of Vania 19.9 H (11.5-14.5) % Plt Count 254 (130-400) K/uL MPV 8.7 (7.4-10.4) fL Immature Gran % (Auto) 0.2 % Neut % (Auto) 70.6 % Lymph % (Auto) 17.3 % [place] % (Auto) 7.9 % Eos % (Auto) 3.8 % Baso % (Auto) 0.2 % Neut # (Auto) 4.29 (1.4-6.5) K/uL Lymph # (Auto) 1.05 L (1.2-3.4) K/uL [place] # (Auto) 0.48 (0.11-0.59) K/uL Eos # (Auto) 0.23 (0-0.5) K/uL Baso # (Auto) 0.01 (0-0.2) K/uL Immature Gran # (Auto) 0.01 (0.00-0.02) K/uL Sodium 135 L (136-145) mmol/L Potassium 3.7 (3.5-5.1) mmol/L Chloride 101 (98-107) mmol/L Carbon Dioxide 27 (21-32) mmol/L Anion Gap 7 (3-11) BUN 12 (6-23) mg/dl Creatinine 1.40 H (0.6-1.2) mg/dl Est Cr Clr Drug Dosing Not Reportable Est GFR ( Amer) 50.6 ml/min Est GFR (Non-Af Amer) 43.7 ml/min BUN/Creatinine Ratio 8.6 L (10-20) Glucose 158 H (70-99(Fasting)) mg/dl Lactate (0.4-2.0) mmol/L Calcium 9.1 (8.5-10.1) mg/dl Phosphorus 3.7 (2.5-4.9) mg/dl Magnesium 2.0 (1.7-2.4) mg/dl Iron (35-150) mcg/dl Transferrin (200-360) mg/dl Ferritin (8-388) ng/ml Total Bilirubin 0.4 (0.2-1.0) mg/dl AST 8 L (13-39) U/L ALT 7 (7-52) U/L Alkaline Phosphatase 93 (34-104) U/L Troponin I High Sens 14.6 H (0-14) pg/ml Total Protein 7.1 (6.0-8.3) gm/dl Albumin 3.6 (3.4-5.0) gm/dl Globulin 3.5 (2.5-4.0) gm/dl Albumin/Globulin Ratio 1.0 (0.9-2) Lipase 25 (11-82) U/L Vitamin B12 (180-914) pg/ml Folate (>5.38) ng/ml Procalcitonin (0-0.5) ng/ml SARS-CoV-2 (PCR) NEGATIVE (Negative) Influenza Type A (PCR) Negative (Neg) Influenza Type B (PCR) Negative (Neg) RSV (RT-PCR) Negative (Neg) 08/03/21 08/03/21 08/03/21 Range/Units 17:25 17:25 17:25 WBC (4.8-10.8) K/uL RBC (4.2-5.4) M/uL Hgb (12.0-16.0) g/dL Hct (37-47) % MCV (80-100) fL MCH (25-34) pg MCHC (32-36) g/dL RDW Std Deviation (36.4-46.3) fL RDW Coeff of Vania (11.5-14.5) % Plt Count (130-400) K/uL MPV (7.4-10.4) fL Immature Gran % (Auto) % Neut % (Auto) % Lymph % (Auto) % [place] % (Auto) % Eos % (Auto) % Baso % (Auto) % Neut # (Auto) (1.4-6.5) K/uL Lymph # (Auto) (1.2-3.4) K/uL [place] # (Auto) (0.11-0.59) K/uL Eos # (Auto) (0-0.5) K/uL Baso # (Auto) (0-0.2) K/uL Immature Gran # (Auto) (0.00-0.02) K/uL Sodium (136-145) mmol/L Potassium (3.5-5.1) mmol/L Chloride (98-107) mmol/L Carbon Dioxide (21-32) mmol/L Anion Gap (3-11) BUN (6-23) mg/dl Creatinine (0.6-1.2) mg/dl Est Cr Clr Drug Dosing Est GFR ( Amer) ml/min Est GFR (Non-Af Amer) ml/min BUN/Creatinine Ratio (10-20) Glucose (70-99(Fasting)) mg/dl Lactate 1.2 (0.4-2.0) mmol/L Calcium (8.5-10.1) mg/dl Phosphorus (2.5-4.9) mg/dl Magnesium (1.7-2.4) mg/dl Iron (35-150) mcg/dl Transferrin (200-360) mg/dl Ferritin (8-388) ng/ml Total Bilirubin (0.2-1.0) mg/dl AST (13-39) U/L ALT (7-52) U/L Alkaline Phosphatase (34-104) U/L Troponin I High Sens (0-14) pg/ml Total Protein (6.0-8.3) gm/dl Albumin (3.4-5.0) gm/dl Globulin (2.5-4.0) gm/dl Albumin/Globulin Ratio (0.9-2) Lipase (11-82) U/L Vitamin B12 (180-914) pg/ml Folate 8.70 (>5.38) ng/ml Procalcitonin < 0.05 (0-0.5) ng/ml SARS-CoV-2 (PCR) (Negative) Influenza Type A (PCR) (Neg) Influenza Type B (PCR) (Neg) RSV (RT-PCR) (Neg) 08/03/21 08/03/21 Range/Units 17:25 17:25 WBC (4.8-10.8) K/uL RBC (4.2-5.4) M/uL Hgb (12.0-16.0) g/dL Hct (37-47) % MCV (80-100) fL MCH (25-34) pg MCHC (32-36) g/dL RDW Std Deviation (36.4-46.3) fL RDW Coeff of Vania (11.5-14.5) % Plt Count (130-400) K/uL MPV (7.4-10.4) fL Immature Gran % (Auto) % Neut % (Auto) % Lymph % (Auto) % [place] % (Auto) % Eos % (Auto) % Baso % (Auto) % Neut # (Auto) (1.4-6.5) K/uL Lymph # (Auto) (1.2-3.4) K/uL [place] # (Auto) (0.11-0.59) K/uL Eos # (Auto) (0-0.5) K/uL Baso # (Auto) (0-0.2) K/uL Immature Gran # (Auto) (0.00-0.02) K/uL Sodium (136-145) mmol/L Potassium (3.5-5.1) mmol/L Chloride (98-107) mmol/L Carbon Dioxide (21-32) mmol/L Anion Gap (3-11) BUN (6-23) mg/dl Creatinine (0.6-1.2) mg/dl Est Cr Clr Drug Dosing Est GFR ( Amer) ml/min Est GFR (Non-Af Amer) ml/min BUN/Creatinine Ratio (10-20) Glucose (70-99(Fasting)) mg/dl Lactate (0.4-2.0) mmol/L Calcium (8.5-10.1) mg/dl Phosphorus (2.5-4.9) mg/dl Magnesium (1.7-2.4) mg/dl Iron 11 L (35-150) mcg/dl Transferrin 181 L (200-360) mg/dl Ferritin 78.2 (8-388) ng/ml Total Bilirubin (0.2-1.0) mg/dl AST (13-39) U/L ALT (7-52) U/L Alkaline Phosphatase (34-104) U/L Troponin I High Sens (0-14) pg/ml Total Protein (6.0-8.3) gm/dl Albumin (3.4-5.0) gm/dl Globulin (2.5-4.0) gm/dl Albumin/Globulin Ratio (0.9-2) Lipase (11-82) U/L Vitamin B12 204 (180-914) pg/ml Folate (>5.38) ng/ml Procalcitonin (0-0.5) ng/ml SARS-CoV-2 (PCR) (Negative) Influenza Type A (PCR) (Neg) Influenza Type B (PCR) (Neg) RSV (RT-PCR) (Neg) Administered Medications Discontinued Medications Albuterol (Albut/Ipratrop 3mg/0.5mg Neb 3 Ml Vial) 3 ml NEB NOW STA; Protocol Stop: 08/03/21 14:02 Last Admin: 08/03/21 14:32 Dose: 3 ml Documented by: [id number] Dexamethasone Sodium Phosphate (DexamethasonePf 10 Mg/Ml Vial) 10 mg IV NOW ONE Stop: 08/03/21 14:02 Last Admin: 08/03/21 14:32 Dose: 10 mg Documented by: [id number] Guaifenesin (Guaifenesin 600 Mg Tabcr) 600 mg PO NOW STA Stop: 08/03/21 14:02 Last Admin: 08/03/21 14:32 Dose: 600 mg Documented by: [id number] Sodium Chloride (Nss 1000ml) 1,000 mls @ 999 mls/hr IV .[id number] ONE Stop: 08/03/21 14:41 Last Infusion: 08/03/21 15:34 Dose: 0 mls/hr Documented by: [id number] Admin: 08/03/21 14:32 Dose: 999 mls/hr Documented by: [id number] Ceftriaxone Sodium (Rocephin) 2,000 mg in 70 mls @ 140 mls/hr IV NOW STA Stop: 08/03/21 17:31 Last Infusion: 08/03/21 18:45 Dose: 0 mls/hr Documented by: [id number] Admin: 08/03/21 18:10 Dose: 140 mls/hr Documented by: [id number] Azithromycin 500 mg/ Dextrose 255 mls @ 127.5 mls/hr IV NOW STA Stop: 08/03/21 19:01 Last Infusion: 08/03/21 21:00 Dose: 0 mls/hr Documented by: [id number] Admin: 08/03/21 18:53 Dose: 127.5 mls/hr Documented by: Ondansetron HCl (Ondansetron Inj 2 Mg/Ml 2 Ml Vial) 4 mg IV NOW STA Stop: 08/03/21 14:02 Last Admin: 08/03/21 14:32 Dose: 4 mg Documented by: [id number] Imaging Data Radiologist's Impression: Chest X-Ray 08/03/21 13:41 XR chest 1V portable HISTORY: 51 years-old Female Chest Pain acute atypical chest pain COMPARISON: CT chest 03/19/2016 TECHNIQUE: Portable AP view of the chest FINDINGS: The cardiac silhouette is mildly enlarged. No pneumothorax, pleural effusion or overt pulmonary edema. Ill-defined 5.3 cm airspace opacity of the lateral right mid to lower lung. Bones appear grossly intact. IMPRESSION: Ill-defined 5.3 cm airspace opacity of the lateral right mid to lower lung suspicious for pneumonia. Follow-up imaging after treatment course is recommended to exclude an underlying lesion. ACT 112: Negative or not required by law. The above report was generated using voice recognition software. It may contain grammatical, syntax or spelling errors. Electronically signed by: Tuan Quintana M.D. 08/03/2021 2:18 PM Discharge Plan Visit Data Chief Complaint: Congestion Stated Complaint: COUGH, CONGESTION; 3 WEEKS ED Provider: Jean Claude Toro Discharge Problem: Pneumonia, COPD (chronic obstructive pulmonary disease), Complete left bundle branch block, Elevated troponin, CKD (chronic kidney disease), stage III Patient Disposition: Admitted As Inpatient Discharge Instructions Interventions: ED Discharge Assessment Last Done: 08/03/21 20:25 Discharge Problem: Pneumonia Qualifiers: Pneumonia type: due to unspecified organism Laterality: right Lung location: middle lobe of lung Qualified Code(s): J18.9 - Pneumonia, unspecified organism COPD (chronic obstructive pulmonary disease) Qualifiers: COPD type: COPD with acute exacerbation Qualified Code(s): J44.1 - Chronic obstructive pulmonary disease with (acute) exacerbation CKD (chronic kidney disease), stage III Qualifiers: Chronic kidney disease stage 3 subtype: unspecified whether 3a or 3b Qualified Code(s): N18.30 - Chronic kidney disease, stage 3 unspecified
--- NOTE | 2021-08-03 18:00 | History & Physical Report ---
Date of Service August 03, 2021 Assessment & Plan (1) Pneumonia: Plan: Patient is 51-year-old female with PMH [place]'s, DM II, chronic anemia, dyslipidemia, CKD III, depression, anxiety, GERD, COPD, tobacco use presented to ER with complaint of nonproductive cough x 1-2 weeks, chills, SOB with exertion, denies chest pain. In ER patient afebrile, vital stable, 95% on room air. No leukocytosis. Lactate and procalcitonin WNL. Negative SARS-CoV-2 PCR, negative influenza PCR, negative RSV PCR. CXR: Ill-defined 5.3 cm airspace opacity of the lateral right mid to lower lung suspicious for pneumonia Blood cultures pending In ER given dexamethasone 10 mg IV, Rocephin, Zithromax, 1L NSS Concern for possible aspiration pneumonia Unasyn, doxycycline Aspiration precautions Speech consult Incentive spirometer, flutter valve CBC, BMP in a.m. (2) Elevated troponin: Plan: LBBB Troponin: 14.6. EKG: LBBB. Prior ECG reviewed without LBBB Denies chest pain Trend troponin Echo Cardiology consult EKG in am (3) Diabetes mellitus, type 2: Plan: A1c: 8.6 on 05/31/2021 Hold home medication Novolog sliding scale per protocol (4) Anemia: Plan: Acute on chronic anemia Hgb: 8.8. Was 10.4 on 05/31/2021 Denies melena, hematochezia, other noted bleeding Anemia labs pending (5) Nathalie chorea: Plan: chronic, stable, cont current therapy. Ambulates with walker at baseline. (6) RLS (restless legs syndrome): Plan: Follows with neurology at [facility] Continue gabapentin, risperidone, amantadine (7) Hyperlipidemia: Plan: Continue simvastatin (8) CKD (chronic kidney disease), stage III: Plan: Cr: 1.4. Baseline: 1.3-1.5 Monitor renal functions (9) Depression: Plan: Anxiety Continue Lexapro, buspirone, hydroxyzine (10) GERD (gastroesophageal reflux disease): Plan: Continue PPI and H2 sandra (11) Tobacco use: Plan: Smoking cessation encouraged Nicotine patch DVT Prophylaxis SCDs Full Code as per discussion with pt Follows with Dr Johnson for routine care Pt was seen and care coordinated with Dr Oneil. See addendum History of Present Illness Chief Complaint: Cough Primary Care Provider: Mandi Johnson MD Patient is 51-year-old female with PMH [place]'s, DM II, chronic anemia, dyslipidemia, CKD III, depression, anxiety, GERD, COPD, tobacco use presented to ER with complaint of nonproductive cough x 1-2 weeks. Patient reports feels like cough is getting worse. Has been having some chills. Has not been taking her temperature at home. Patient reports feeling short of breath with exertion for the past week. Denies any chest pain. Patient reports does choke sometimes. Had swallowing study in 2019 that was unremarkable, however patient states her [place]'s chorea has progressed over past couple of years. Follows with [facility] neurology. At baseline patient reports she uses her albuterol inhaler twice a day. She has been using albuterol more the past week since her cough, does not feel like it has helped with cough. No other OTC treatment used. Baseline ambulatory dysfunction, has walker at home but reports often does not use it. Reports frequent falls. States fall several days ago and fell onto knee, denies any injury. Denies increased weakness. Denies ill contacts, diaphoresis, N/V/D/C , FOSTER, dizziness, syncope, vision changes, neck pain, orthopnea, palpitations, sore throat, otalgia, rhinorrhea, abdominal pain, paresthesias, extremity edema, rashes, urinary symptoms. In ER patient afebrile, vital stable, 95% on room air. No leukocytosis. Lactate and procalcitonin WNL. Negative SARS-CoV-2 PCR, negative influenza PCR, negative RSV PCR. CXR: Opacity right mid to lower lung Allergies Allergy/AdvReac Type Severity Reaction Status Date / Time No Known Allergies Allergy Verified 08/03/21 15:01 Home Medications Medication Instructions Recorded Confirmed Type albuterol sulfate 90 mcg/actuation 2 puff INHALATION QID PRN 12/14/19 08/03/21 History aerosol inhaler (Ventolin HFA) amantadine HCl 100 mg capsule 100 mg PO TID 12/14/19 08/03/21 History aspirin 81 mg tablet,delayed 81 mg PO HS 12/14/19 08/03/21 History release bupropion HCl 150 mg 24 hr tablet, 150 mg PO QAM 12/14/19 08/03/21 History extended release (Wellbutrin XL) buspirone 30 mg tablet 30 mg PO QAM 12/14/19 08/03/21 History calcium carbonate 200 mg calcium 200 mg PO TID PRN 12/14/19 08/03/21 History (500 mg) chewable tablet (Tums) escitalopram oxalate 10 mg tablet 10 mg PO QAM 12/14/19 08/03/21 History (Lexapro) fluticasone propionate 50 2 spray INTRANASAL QAM 12/14/19 08/03/21 History mcg/actuation nasal spray,suspension (Flonase Allergy Relief) gabapentin 300 mg capsule 300 mg PO TID 12/14/19 08/03/21 History (Neurontin) hydroxyzine HCl 25 mg tablet 25 mg PO BID 12/14/19 08/03/21 History lorazepam 1 mg tablet 1 mg PO DAILY PRN 12/14/19 08/03/21 History pantoprazole 20 mg tablet,delayed 20 mg PO QAM 12/14/19 08/03/21 History release (Protonix) polyethylene glycol 3350 17 gram 17 g PO DAILY PRN 12/14/19 08/03/21 History oral powder packet (Miralax) promethazine 25 mg tablet 25 mg PO QID PRN 12/14/19 08/03/21 History simvastatin 20 mg tablet 20 mg PO HS 12/14/19 08/03/21 History tramadol 50 mg tablet 50 mg PO Q8H PRN 12/14/19 08/03/21 History cholecalciferol (vitamin D3) 125 5,000 unit PO DAILY 08/03/21 08/03/21 History mcg (5,000 unit) tablet (Vitamin D3) famotidine 40 mg tablet 40 mg PO HS 08/03/21 08/03/21 History glipizide 5 mg tablet 10 mg PO DAILYBB 08/03/21 08/03/21 History glipizide 5 mg tablet 15 mg PO DAILYBD 08/03/21 08/03/21 History risperidone 0.25 mg tablet 0.25 mg PO DAILY 08/03/21 08/03/21 History risperidone 1 mg tablet 1 mg PO HS 08/03/21 08/03/21 History semaglutide (Ozempic) 0.25 mg SUBCUT UD 08/03/21 08/03/21 History Past Med/Surg History Medical History Chronic back pain LBP CKD (chronic kidney disease), stage III Depression Diabetes mellitus, type 2 NIDDM Elevated troponin GERD (gastroesophageal reflux disease) [place] chorea dx 4 years ago, follows with [facility] neurology Hyperlipidemia Morbid obesity Stage 3 chronic kidney disease Tobacco use Surgical History H/O prior ablation treatment UTERINE ABLATION X 2 History of colonoscopy History of dilatation and curettage History of esophagogastroduodenoscopy (EGD) History of hysterectomy Family History Mother No problems noted. Father Family history of diabetes mellitus Social History Smoking Status: Current every day smoker Tobacco Type: Cigarettes Cigarettes Per Day: 1/2 - 1 ppd; Second Hand Exposure: Yes (MOTHER SMOKED); Hx Alcohol Use: No Hx Substance Use: No Preferred Language: Cuban Communication Ability: Effective Women Nurse Required: No Beliefs That Will Affect Care: None Current Living Situation: Spouse and Family Feels Safe at Home: Yes Assistive Devices: Glasses Review of Systems Review of Systems: All systems reviewed & are unremarkable except as noted in HPI & below Physical Exam Physical Exam: General: no distress, obese Head: normocephalic, atraumatic Eyes: PERRL, EOM's intact, conjunctiva non-injected, anicteric ENT: normal inspection external ears, nose, mucous membranes moist Neck: supple, trachea midline Lungs: clear, no respiratory distress, 95% on RA, no wheezing/rhonchi/rales appreciated CV: RRR, no murmur, no pretibial edema Abd: protuberant, normal BS, soft, non-tender Ext: no cyanosis, no calf tenderness Neuro: A&O x 3, some slow responses intermittently (at baseline per family), +chorea movements noted, flat affect Skin: warm, dry Results & Data Results & Data ([facility]) Vital Signs (Past 12 Hours) Vital Signs Temp Pulse Resp BP Pulse Ox 08/03/21 13:18 36.7 C 96 H 20 125/78 95 Laboratory Results Short CBC 08/03/21 Range/Units 13:46 WBC 6.07 (4.8-10.8) K/uL Hgb 8.8 L (12.0-16.0) g/dL Hct 28.7 L (37-47) % Plt Count 254 (130-400) K/uL BMP 08/03/21 13:46 Sodium 135 L Potassium 3.7 Chloride 101 Carbon Dioxide 27 BUN 12 Creatinine 1.40 H Glucose 158 H Calcium 9.1 Liver Function 08/03/21 Range/Units 13:46 Total Bilirubin 0.4 (0.2-1.0) mg/dl AST 8 L (13-39) U/L ALT 7 (7-52) U/L Alkaline Phosphatase 93 (34-104) U/L Albumin 3.6 (3.4-5.0) gm/dl Diagnostic Findings Chest X-Ray 08/03/21 13:41 XR chest 1V portable HISTORY: 51 years-old Female Chest Pain acute atypical chest pain COMPARISON: CT chest 03/19/2016 TECHNIQUE: Portable AP view of the chest FINDINGS: The cardiac silhouette is mildly enlarged. No pneumothorax, pleural effusion or overt pulmonary edema. Ill-defined 5.3 cm airspace opacity of the lateral right mid to lower lung. Bones appear grossly intact. IMPRESSION: Ill-defined 5.3 cm airspace opacity of the lateral right mid to low er lung suspicious for pneumonia. Follow-up imaging after treatment course is recommended to exclude an underlying lesion. ACT 112: Negative or not required by law. The above report was generated using voice recognition software. It may contain grammatical, syntax or spelling errors. Electronically signed by: Tuan Quintana M.D. 08/03/2021 2:18 PM ECG Rate (beats per minute): 87 Findings: + LBBB Code Status & VTE Plan VTE Prophylaxis Plan VTE Prophylaxis will be ordered: Yes Supervising Physician Co-Signing Physician Notes I have seen and examined the patient and have discussed the case with the provider above. I agree with the assessment and plan as stated. 51 yo F presents wtih SOB 2/2 possible aspiration pneumonia. She has swallowing issues in setting of [place]. She is hemodynamically stable and afebrile, no increased work of breathing, rales on right mid and base, no wheezing or rhonchi. Normal cardiac exam. Very mild tremoring generally, alert and oriented. Normal abdominal exam. Moist diet, Unasyn, speech consult. Supportive care. DO Thad (1) Pneumonia Laterality: right Lung location: middle lobe of lung Pneumonia type: due to unspecified organism Qualified Code(s): J18.9 - Pneumonia, unspecified organism
[2021-08-03 18:53] LABS: Ferritin 78.2 ng/ml (8-388)
[2021-08-03] MEDS ORDERED: GLUCAGON FOR INJ 1 MG VIAL SQ PRN (21:18)
[2021-08-03] MEDS ORDERED: ALBUTEROL HFA 8 GM INHALER INH PRN (21:18)
[2021-08-03] MEDS ORDERED: PROMETHAZINE HCL 12.5 MG in SODIUM CHLORIDE 0.9% 50 ML IV PRN (21:18)
[2021-08-03] MEDS ORDERED: CARBOHYDRATES FOR HYPOGLYCEMIA PO PRN (21:18)
[2021-08-03] MEDS ORDERED: DEXTROSE 50% 50 ML SYRINGE IV PRN (21:18)
[2021-08-03] MEDS ORDERED: GLUCOSE 10 TABS/TUBE PO PRN (21:18)
[2021-08-03] MEDS ORDERED: traMADol HCL 50 MG TABLET PO PRN (21:18)
[2021-08-03] MEDS ORDERED: GLUCOSE 40% GEL 15 GM TUBE PO PRN (21:18)
[2021-08-03] MEDS ORDERED: POLYETHYLENE (MIRALAX) 17 GM PACK PO PRN (21:18)
[2021-08-03] MEDS ORDERED: ACETAMINOPHEN 325 MG TAB PO PRN (21:18)
[2021-08-03] MEDS: AMPICILLIN/SULBACTAM SOD 3,000 MG in 0.9 % SODIUM CHLORIDE 100 ML IV SCH (22:05)
[2021-08-03] MEDS: INSULIN ASPART PER UNIT SC SCH (22:18)
[2021-08-03] MEDS: DOXYCYCLINE HYCLATE 100 MG in DEXTROSE 5% 100 ML IV SCH (22:38)
[2021-08-03] MEDS: NICOTINE 21 MG/24 HR TDSY TD SCH (22:40)
[2021-08-03] MEDS: AMANTADINE HCL 100 MG CAPSULE PO SCH (22:41)
[2021-08-03] MEDS: ASPIRIN 81 MG ECTAB PO SCH (22:42)
[2021-08-03] MEDS: hydrOXYzine HCl 25 MG TAB PO SCH (22:43)
[2021-08-03] MEDS: FAMOTIDINE 40 MG TABLET PO SCH (22:44)
[2021-08-03] MEDS: GABAPENTIN 300 MG CAP PO SCH (22:45)
[2021-08-03] MEDS: risperiDONE 1 MG TABLET PO SCH (22:46)
[2021-08-03] MEDS: SIMVASTATIN 20 MG TAB PO SCH (22:46)
[2021-08-04] MEDS: AMPICILLIN/SULBACTAM SOD 3,000 MG in 0.9 % SODIUM CHLORIDE 100 ML IV SCH ×4 (04:05→20:08)
[2021-08-04 04:07] LABS: Hematocrit (blood only) 28.9 % (37-47); Hemoglobin 8.8 g/dL (12.0-16.0); Mean Corpuscular Hemoglobin 23.6 pg (25-34); Mean Corpuscular Hgb Conc 30.4 g/dL (32-36); Mean Corpuscular Volume 77.5 fL (80-100); Mean Platelet Volume 8.8 fL (7.4-10.4); Platelet Count 275 K/uL (130-400); RDW Coefficient of Variation 19.7 % (11.5-14.5); RDW Standard Deviation 56.3 fL (36.4-46.3); Red Blood Count 3.73 M/uL (4.2-5.4); White Blood Count 4.97 K/uL (4.8-10.8)
[2021-08-04 04:30] LABS: BUN Creatinine Ratio 9.2 (10-20); Calcium 9.4 mg/dl (8.5-10.1); Creatinine Clr Calc Pharmacy 64.8 ml/min; Est GFR (African American) 55.4 ml/min; Est GFR (Non-African American) 47.8 ml/min; Potassium 4.1 mmol/L (3.5-5.1)
--- NOTE | 2021-08-04 06:38 | Electrocardiogram Report ---
Test Reason : Blood Pressure : / mmHG Vent. Rate : 087 BPM Atrial Rate : 087 BPM P-R Int : 156 ms QRS Dur : 156 ms QT Int : 416 ms P-R-T Axes : 010 -19 060 degrees QTc Int : 500 ms Poor data quality, interpretation may be adversely affected Normal sinus rhythm Left bundle branch block Abnormal ECG When compared with ECG of 19-MAR-2016 21:50, Left bundle branch block is now Present Confirmed by Ahmet Corrigan ([id number]) on 08/04/2021 6:38:08 AM Referred By: REFERRED SELF Confirmed By:Ahmet Corrigan
[2021-08-04] MEDS: INSULIN ASPART PER UNIT SC SCH ×4 (08:08→20:13)
[2021-08-04] MEDS: GABAPENTIN 300 MG CAP PO SCH ×3 (08:13→20:11)
[2021-08-04] MEDS: FLUTICASONE PROPIONATE NA SPR 16 GM BTL NAE SCH (08:13)
[2021-08-04] MEDS: ESCITALOPRAM OXALATE 10 MG TAB PO SCH (08:14)
[2021-08-04] MEDS: hydrOXYzine HCl 25 MG TAB PO SCH ×2 (08:14→20:10)
[2021-08-04] MEDS: buPROPion XL 150 MG TABCR PO SCH (08:14)
[2021-08-04] MEDS: AMANTADINE HCL 100 MG CAPSULE PO SCH ×3 (08:15→20:10)
[2021-08-04] MEDS: busPIRone 15 MG TAB PO SCH (08:15)
[2021-08-04] MEDS: NICOTINE 21 MG/24 HR TDSY TD SCH (08:15)
[2021-08-04] MEDS: PANTOprazole 40 MG TAB PO SCH (08:16)
[2021-08-04] MEDS: CHOLECALCIFEROL 5,000 UNITS 125 MCG TAB PO SCH (08:16)
[2021-08-04] MEDS: risperiDONE 0.5 MG TABLET PO SCH (08:44)
[2021-08-04] MEDS: DOXYCYCLINE HYCLATE 100 MG in DEXTROSE 5% 100 ML IV SCH ×2 (08:45→21:37)
--- NOTE | 2021-08-04 10:15 | Cardiology Consultation ---
Date of Consultation August 04, 2021 Assessment & Plan (1) Tobacco use: (2) CKD (chronic kidney disease), stage III: (3) Diabetes mellitus, type 2: (4) Nathalie chorea: (5) Pneumonia: (6) Abnormal EKG: I would continue to treat the patient's right mid to lower lobe pneumonia which was noted on initial chest x-ray. That is most likely the etiology of her symptoms. The cardiac troponins are essentially normal. Her EKG however, is concerning as it is a new intermittent left bundle branch block. Her first EKG showed the left bundle branch block but her second 1 revealed a narrow complex QRS. The second EKG does have diffuse T wave inversions with no consistent pattern. I think we should obtain an echocardiogram to evaluate for a cardiomyopathy and of course for wall motion abnormalities that would suggest ischemic heart disease. We will follow along with you. History of Present Illness Attending Physician: Scot Sutton MD History of Present Illness The patient is a 51-year-old female with a history of [place]'s disease who was admitted with progressive shortness of breath and pneumonia. There is no previous history of cardiac disease. She is a diabetic and smoker. She has had no chest arm or back discomfort. She denies orthopnea, heart palpitations or tachycardia. Cardiac troponins are essentially negative. Her initial EKG revealed a left bundle branch block which was new. Her second EKG revealed a narrow complex rhythm with diffuse T wave inversions. Past medical history: [place]'s disease (HCC) Morbid obesity with BMI of 40.0-44.9, adult ([facility]) Type 2 diabetes mellitus with hemoglobin A1c goal of less than 7.0% ([facility]) Type 2 diabetes mellitus with stage 3a chronic kidney disease (HCC) Reflux esophagitis Tobacco use disorder Dyslipidemia, goal LDL below 100 Intertrigo Renal osteodystrophy Major depressive disorder, recurrent, moderate (HCC) Chronic kidney disease, stage 3a ([facility]) Uncomplicated asthma Diabetes mellitus with stage 3 chronic kidney disease ([facility]) Allergies Allergy/AdvReac Type Severity Reaction Status Date / Time No Known Allergies Allergy Verified 08/03/21 15:01 Home Medications Medication Instructions Recorded Confirmed Type albuterol sulfate 90 mcg/actuation 2 puff INHALATION QID PRN 12/14/19 08/03/21 History aerosol inhaler (Ventolin HFA) amantadine HCl 100 mg capsule 100 mg PO TID 12/14/19 08/03/21 History aspirin 81 mg tablet,delayed 81 mg PO HS 12/14/19 08/03/21 History release bupropion HCl 150 mg 24 hr tablet, 150 mg PO QAM 12/14/19 08/03/21 History extended release (Wellbutrin XL) buspirone 30 mg tablet 30 mg PO QAM 12/14/19 08/03/21 History calcium carbonate 200 mg calcium 200 mg PO TID PRN 12/14/19 08/03/21 History (500 mg) chewable tablet (Tums) escitalopram oxalate 10 mg tablet 10 mg PO QAM 12/14/19 08/03/21 History (Lexapro) fluticasone propionate 50 2 spray INTRANASAL QAM 12/14/19 08/03/21 History mcg/actuation nasal spray,suspension (Flonase Allergy Relief) gabapentin 300 mg capsule 300 mg PO TID 12/14/19 08/03/21 History (Neurontin) hydroxyzine HCl 25 mg tablet 25 mg PO BID 12/14/19 08/03/21 History lorazepam 1 mg tablet 1 mg PO DAILY PRN 12/14/19 08/03/21 History pantoprazole 20 mg tablet,delayed 20 mg PO QAM 12/14/19 08/03/21 History release (Protonix) polyethylene glycol 3350 17 gram 17 g PO DAILY PRN 12/14/19 08/03/21 History oral powder packet (Miralax) promethazine 25 mg tablet 25 mg PO QID PRN 12/14/19 08/03/21 History simvastatin 20 mg tablet 20 mg PO HS 12/14/19 08/03/21 History tramadol 50 mg tablet 50 mg PO Q8H PRN 12/14/19 08/03/21 History cholecalciferol (vitamin D3) 125 5,000 unit PO DAILY 08/03/21 08/03/21 History mcg (5,000 unit) tablet (Vitamin D3) famotidine 40 mg tablet 40 mg PO HS 08/03/21 08/03/21 History glipizide 5 mg tablet 10 mg PO DAILYBB 08/03/21 08/03/21 History glipizide 5 mg tablet 15 mg PO DAILYBD 08/03/21 08/03/21 History risperidone 0.25 mg tablet 0.25 mg PO DAILY 08/03/21 08/03/21 History risperidone 1 mg tablet 1 mg PO HS 08/03/21 08/03/21 History semaglutide (Ozempic) 0.25 mg SUBCUT UD 08/03/21 08/03/21 History Patient History Medical History Chronic back pain LBP CKD (chronic kidney disease), stage III Depression Diabetes mellitus, type 2 NIDDM Elevated troponin GERD (gastroesophageal reflux disease) Nathalie chorea dx 4 years ago, follows with [facility] neurology Hyperlipidemia Morbid obesity Stage 3 chronic kidney disease Tobacco use Surgical History H/O prior ablation treatment UTERINE ABLATION X 2 History of colonoscopy History of dilatation and curettage History of esophagogastroduodenoscopy (EGD) History of hysterectomy Family History Mother No problems noted. Father Family history of diabetes mellitus Social History Smoking Status: Current every day smoker Tobacco Type: Cigarettes Cigarettes Per Day: 1/2 - 1 ppd; Second Hand Exposure: Yes (MOTHER SMOKED); Tobacco Cessation Education Requested by Patient: No Hx Alcohol Use: No Hx Substance Use: No Preferred Language: Zambian Communication Ability: Effective [employer] Required: No Beliefs That Will Affect Care: None Current Living Situation: Spouse and Family Other Information That Helps Us Care for You: No Feels Safe at Home: Yes Assistive Devices: Glasses Review of Systems Review of Systems: Review of Systems: See HPI for pertinent positives. All other 10 point review of systems are negative. Physical Exam Physical Exam: General: no acute distress and stated age Head: normocephalic, no masses, lesions, tenderness or abnormalities Eyes: conjunctiva are pink and non-injected, sclera clear Neck: supple, no adenopathy, no bruits, normal jugular venous pulse, no hepatojugular reflux Chest: normal shape and normal respiratory effort Lungs: clear to auscultation and percussion Cardiac Exam: - regular rate & rhythm, no murmurs gallops or rubs - normal S1, normal S2 Pulses: 2(+) throughout Abdomen: abdomen soft, non-tender, no abnormal masses and no hepatosplenomegaly Musculoskeletal: no gait disturbance, no joint inflammation, no deforming arthritis Extremities: no edema and no cyanosis Neuro: grossly normal exam Results & Data ([facility]) Vital Signs (Past 12 Hours) Vital Signs Temp Pulse Pulse Resp BP Pulse Ox 08/04/21 07:20 57 L 08/04/21 07:16 36.5 C 68 18 105/67 91 08/04/21 06:20 36.5 C 68 18 105/67 91 08/04/21 03:31 37 C 64 18 127/91 90 08/04/21 01:22 96 H 08/04/21 01:11 36.8 C 75 18 115/78 95 08/03/21 22:56 36.8 C 74 18 128/77 94 Laboratory Results Laboratory Results - last 24 hr 08/03/21 08/03/21 08/03/21 13:46 13:46 13:51 WBC 6.07 RBC 3.72 L Hgb 8.8 L Hct 28.7 L MCV 77.2 L MCH 23.7 L MCHC 30.7 L RDW Std Deviation 56.5 H RDW Coeff of Vania 19.9 H Plt Count 254 MPV 8.7 Immature Gran % (Auto) 0.2 Neut % (Auto) 70.6 Lymph % (Auto) 17.3 [place] % (Auto) 7.9 Eos % (Auto) 3.8 Baso % (Auto) 0.2 Neut # (Auto) 4.29 Lymph # (Auto) 1.05 L [place] # (Auto) 0.48 Eos # (Auto) 0.23 Baso # (Auto) 0.01 Immature Gran # (Auto) 0.01 Sodium 135 L Potassium 3.7 Chloride 101 Carbon Dioxide 27 Anion Gap 7 BUN 12 Creatinine 1.40 H Est Cr Clr Drug Dosing Not Reportable Est GFR ( Amer) 50.6 Est GFR (Non-Af Amer) 43.7 BUN/Creatinine Ratio 8.6 L Glucose 158 H POC Glucose Lactate Calcium 9.1 Phosphorus 3.7 Magnesium 2.0 Iron Transferrin Ferritin Total Bilirubin 0.4 AST 8 L ALT 7 Alkaline Phosphatase 93 Troponin I High Sens 14.6 H Total Protein 7.1 Albumin 3.6 Globulin 3.5 Albumin/Globulin Ratio 1.0 Lipase 25 Vitamin B12 Folate Procalcitonin SARS-CoV-2 (PCR) NEGATIVE Influenza Type A (PCR) Negative Influenza Type B (PCR) Negative RSV (RT-PCR) Negative 06/10/22 06/10/22 06/10/22 17:25 17:25 17:25 WBC RBC Hgb Hct MCV MCH MCHC RDW Std Deviation RDW Coeff of Vania Plt Count MPV Immature Gran % (Auto) Neut % (Auto) Lymph % (Auto) [place] % (Auto) Eos % (Auto) Baso % (Auto) Neut # (Auto) Lymph # (Auto) [place] # (Auto) Eos # (Auto) Baso # (Auto) Immature Gran # (Auto) Sodium Potassium Chloride Carbon Dioxide Anion Gap BUN Creatinine Est Cr Clr Drug Dosing Est GFR ( Amer) Est GFR (Non-Af Amer) BUN/Creatinine Ratio Glucose POC Glucose Lactate 1.2 Calcium Phosphorus Magnesium Iron Transferrin Ferritin Total Bilirubin AST ALT Alkaline Phosphatase Troponin I High Sens Total Protein Albumin Globulin Albumin/Globulin Ratio Lipase Vitamin B12 Folate 8.70 Procalcitonin < 0.05 SARS-CoV-2 (PCR) Influenza Type A (PCR) Influenza Type B (PCR) RSV (RT-PCR) 08/03/21 08/03/21 08/03/21 17:25 17:25 21:22 WBC RBC Hgb Hct MCV MCH MCHC RDW Std Deviation RDW Coeff of Vania Plt Count MPV Immature Gran % (Auto) Neut % (Auto) Lymph % (Auto) [place] % (Auto) Eos % (Auto) Baso % (Auto) Neut # (Auto) Lymph # (Auto) [place] # (Auto) Eos # (Auto) Baso # (Auto) Immature Gran # (Auto) Sodium Potassium Chloride Carbon Dioxide Anion Gap BUN Creatinine Est Cr Clr Drug Dosing Est GFR ( Amer) Est GFR (Non-Af Amer) BUN/Creatinine Ratio Glucose POC Glucose 297 H Lactate Calcium Phosphorus Magnesium Iron 11 L Transferrin 181 L Ferritin 78.2 Total Bilirubin AST ALT Alkaline Phosphatase Troponin I High Sens Total Protein Albumin Globulin Albumin/Globulin Ratio Lipase Vitamin B12 204 Folate Procalcitonin SARS-CoV-2 (PCR) Influenza Type A (PCR) Influenza Type B (PCR) RSV (RT-PCR) 08/03/21 08/04/21 08/04/21 21:24 03:36 03:36 WBC 4.97 RBC 3.73 L Hgb 8.8 L Hct 28.9 L MCV 77.5 L MCH 23.6 L MCHC 30.4 L RDW Std Deviation 56.3 H RDW Coeff of Vania 19.7 H Plt Count 275 MPV 8.8 Immature Gran % (Auto) Neut % (Auto) Lymph % (Auto) [place] % (Auto) Eos % (Auto) Baso % (Auto) Neut # (Auto) Lymph # (Auto) [place] # (Auto) Eos # (Auto) Baso # (Auto) Immature Gran # (Auto) Sodium Potassium Chloride Carbon Dioxide Anion Gap BUN Creatinine Est Cr Clr Drug Dosing Est GFR ( Amer) Est GFR (Non-Af Amer) BUN/Creatinine Ratio Glucose POC Glucose Lactate Calcium Phosphorus Magnesium Iron Transferrin Ferritin Total Bilirubin AST ALT Alkaline Phosphatase Troponin I High Sens 12.8 12.0 Total Protein Albumin Globulin Albumin/Globulin Ratio Lipase Vitamin B12 Folate Procalcitonin SARS-CoV-2 (PCR) Influenza Type A (PCR) Influenza Type B (PCR) RSV (RT-PCR) 08/04/21 08/04/21 08/04/21 03:36 07:44 09:16 WBC RBC Hgb Hct MCV MCH MCHC RDW Std Deviation RDW Coeff of Vania Plt Count MPV Immature Gran % (Auto) Neut % (Auto) Lymph % (Auto) [place] % (Auto) Eos % (Auto) Baso % (Auto) Neut # (Auto) Lymph # (Auto) [place] # (Auto) Eos # (Auto) Baso # (Auto) Immature Gran # (Auto) Sodium 141 Potassium 4.1 Chloride 106 Carbon Dioxide 27 Anion Gap 8 BUN 12 Creatinine 1.30 H Est Cr Clr Drug Dosing 64.8 Est GFR ( Amer) 55.4 Est GFR (Non-Af Amer) 47.8 BUN/Creatinine Ratio 9.2 L Glucose 96 POC Glucose 130 H Lactate Calcium 9.4 Phosphorus Magnesium Iron Transferrin Ferritin Total Bilirubin AST ALT Alkaline Phosphatase Troponin I High Sens 12.0 Total Protein Albumin Globulin Albumin/Globulin Ratio Lipase Vitamin B12 Folate Procalcitonin SARS-CoV-2 (PCR) Influenza Type A (PCR) Influenza Type B (PCR) RSV (RT-PCR) Medications Administered Current Inpatient Medications Acetaminophen (Acetaminophen 325 Mg Tab) 650 mg PO Q4H PRN PRN Reason: Pain or Fever Stop: 09/02/21 21:17 Albuterol (Albuterol Hfa 8 Gm Inhaler) 2 puffs INH QID PRN PRN Reason: Wheezing Stop: 09/02/21 21:17 Amantadine HCl (Amantadine Hcl 100 Mg Capsule) 100 mg PO TID [facility] Stop: 09/02/21 21:17 Last Admin: 08/04/21 08:15 Dose: 100 mg Documented by: Aspirin (Aspirin 81 Mg Ectab) 81 mg PO [facility] Stop: 09/02/21 21:17 Last Admin: 08/03/21 22:42 Dose: 81 mg Documented by: Bupropion HCl (Bupropion Xl 150 Mg Tabcr) [address] [facility] Stop: 09/03/21 08:59 Last Admin: 08/04/21 08:14 Dose: 150 mg Documented by: Buspirone HCl (Buspirone 15 Mg Tab) [address] [facility] Stop: 09/03/21 08:59 Last Admin: 08/04/21 08:15 Dose: 30 mg Documented by: Dextrose (Dextrose 50% 50 Ml Syringe) 25 - 50 ml IV UD PRN; Protocol PRN Reason: Hypoglycemia Protocol Stop: 09/02/21 21:17 Escitalopram Oxalate (Escitalopram Oxalate 10 Mg Tab) [address] [facility] Stop: 09/03/21 08:59 Last Admin: 08/04/21 08:14 Dose: 10 mg Documented by: Famotidine (Famotidine 40 Mg Tablet) 40 mg PO [facility] Stop: 09/02/21 21:17 Last Admin: 08/03/21 22:44 Dose: 40 mg Documented by: Fluticasone Propionate (Fluticasone Propionate Na Spr 16 Gm Btl) [address] [facility] Stop: 09/03/21 08:59 Last Admin: 08/04/21 08:13 Dose: 2 sprays Documented by: Gabapentin (Gabapentin 300 Mg Cap) 300 mg PO TID [facility] Stop: 09/02/21 21:17 Last Admin: 08/04/21 08:13 Dose: 300 mg Documented by: Glucagon (Glucagon For Inj 1 Mg Vial) 1 mg SQ UD PRN; Protocol PRN Reason: Hypoglycemia Protocol Stop: 09/02/21 21:17 Glucose (Glucose 10 Tabs/Tube) 4 - 8 tabs PO UD PRN; Protocol PRN Reason: Hypoglycemia Protocol Stop: 09/02/21 21:17 Glucose (Glucose 40% Gel 15 Gm Tube) 15 - 30 gm PO UD PRN; Protocol PRN Reason: Hypoglycemia Protocol Stop: 09/02/21 21:17 Hydroxyzine HCl (Hydroxyzine Hcl 25 Mg Tab) 25 mg PO BID [facility] Stop: 09/02/21 21:17 Last Admin: 08/04/21 08:14 Dose: 25 mg Documented by: Promethazine HCl 12.5 mg/ (Sodium Chloride) 50.5 mls @ 202 mls/hr IV Q6H PRN PRN Reason: Nausea And Vomiting Stop: 08/04/21 21:17 Doxycycline Hyclate 100 mg/ (Dextrose) 110 mls @ 50 mls/hr IV Q12H [facility] Stop: 08/10/21 21:59 Last Admin: 08/04/21 08:45 Dose: 50 mls/hr Documented by: Ampicillin Sodium/Sulbactam Sodium 3,000 mg/ Sodium Chloride 108 mls @ 200 mls/hr IV Q6H [facility]; Protocol Stop: 08/10/21 21:59 Last Infusion: 08/04/21 08:47 Dose: Infused Documented by: Insulin Aspart (Insulin Aspart Per Unit) 0 units SC ACHS [facility] Stop: 09/02/21 21:17 Last Admin: 08/04/21 08:08 Dose: 3 units Documented by: Miscellaneous (Remove Nicoderm Patch) 1 ea N/A DAILY@[id number] [facility] Stop: 09/03/21 08:58 Last Admin: 08/04/21 08:11 Dose: 1 ea Documented by: Miscellaneous (Carbohydrates For Hypoglycemia ) 15 - 30 gm PO UD PRN PRN Reason: Hypoglycemia Protocol Stop: 09/02/21 21:17 Nicotine (Nicotine 21 Mg/24 Hr Tdsy) 21 mg TD QAM [facility] Stop: 09/02/21 21:17 Last Admin: 08/04/21 08:15 Dose: 21 mg Documented by: Pantoprazole Sodium (Pantoprazole 40 Mg Tab) 40 mg PO QAM [facility] Stop: 09/03/21 08:59 Last Admin: 08/04/21 08:16 Dose: 40 mg Documented by: Polyethylene Glycol (Polyethylene (Miralax) 17 Gm Pack) 17 gm PO DAILY PRN PRN Reason: Constipation Stop: 09/02/21 21:17 Risperidone (Risperidone 0.5 Mg Tablet) 0.25 mg PO DAILY [facility] Stop: 09/03/21 08:59 Last Admin: 08/04/21 08:44 Dose: 0.25 mg Documented by: Risperidone (Risperidone 1 Mg Tablet) 1 mg PO HS [facility] Stop: 09/02/21 21:17 Last Admin: 08/03/21 22:46 Dose: 1 mg Documented by: Simvastatin (Simvastatin 20 Mg Tab) 20 mg PO HS [facility] Stop: 09/02/21 21:17 Last Admin: 08/03/21 22:46 Dose: 20 mg Documented by: Tramadol HCl (Tramadol Hcl 50 Mg Tablet) 50 mg PO Q8H PRN PRN Reason: Pain Stop: 09/02/21 21:17 Vitamin D (Cholecalciferol 5,000 Units 125 Mcg Tab) 5,000 units PO DAILY [facility] Stop: 09/03/21 08:59 Last Admin: 08/04/21 08:16 Dose: 5,000 units Documented by: (1) CKD (chronic kidney disease), stage III Chronic kidney disease stage 3 subtype: unspecified whether 3a or 3b Qualified Code(s): N18.30 - Chronic kidney disease, stage 3 unspecified (2) Pneumonia Laterality: right Lung location: middle lobe of lung Pneumonia type: due to unspecified organism Qualified Code(s): J18.9 - Pneumonia, unspecified organism
--- NOTE | 2021-08-04 15:39 | Hospitalist Progress Note ---
Date of Service August 04, 2021 Assessment & Plan (1) Pneumonia: Plan: Patient is a 51 yr female with H/O Al[place]'s, DM II, chronic anemia, dyslipidemia, CKD III, depression, anxiety, GERD, COPD, tobacco use presented to ER with complaint of nonproductive cough x 1-2 weeks, chills, SOB with exertion, denies chest pain. Pneumonia Likely secondary to aspiration --CXR: Ill-defined 5.3 cm airspace opacity of the lateral right mid to lower lung suspicious for pneumonia Normal Lactate, Procalcitonin Negative SARS-CoV-2 PCR, negative influenza PCR, negative RSV PCR. --Blood cultures pending Continue Unasyn, Doxy Appreciate Speech Therapy eval Aspiration precautions Incentive spirometer, flutter valve Saturating well on room air (2) Elevated troponin: Plan: New LBBB Normal troponins ECHO : No wall motion abnormality Appreciate cardiology input (3) Diabetes mellitus, type 2: Plan: A1c: 8.6 on 05/31/2021 Hold home medication Novolog sliding scale per protocol (4) Anemia: Plan: Acute on chronic microcytic anemia Anemia work-up suggestive of iron deficiency anemia Normal folate, vitamin B12 No acute bleeding issues Started on iron supplements (5) [place] chorea: Plan: chronic, stable, continue home meds Ambulates with walker at baseline. Fall precautions PT/OT (6) RLS (restless legs syndrome): Plan: Follows with neurology at [facility] Continue gabapentin, risperidone, amantadine (7) Hyperlipidemia: Plan: Continue simvastatin (8) CKD (chronic kidney disease), stage III: Plan: Baseline: 1.3-1.5 Monitor renal functions (9) Depression: Plan: Anxiety, Depression Continue Lexapro, buspirone, hydroxyzine (10) GERD (gastroesophageal reflux disease): Plan: Continue PPI and H2 sandra (11) Tobacco use: Plan: Smoking cessation encouraged Nicotine patch DVT Px SCDs Code Status Full Code Admission and Anticipated Discharge Date Admission Date: August 03, 2021 Subjective Patient is seen and examined at bedside States having nausea, dry cough Dyspnea slightly better today Also feels chest is congested Offers no other complaints Review of Systems Review of Systems: All systems reviewed & are unremarkable except as noted in Subjective Physical Exam Physical Exam: Physical Exam: Vitals signs as noted above General Appearance:Obese, no apparent distress Head: normocephalic, Atraumatic Eyes: normal inspection, EOMI Neck: supple, Trachea midline Respiratory/Chest: Decreased breath sounds, CTA, No accessory muscle use Cardiovascular: S1, S2, No murmur Abdomen/GI:Soft, Non tender, Bowel sounds present Extremities/Musculoskeletal:normal inspection, no edema Neurologic/Psych:AAOX3, grossly no focal neurological deficits Skin: normal color, warm Results & Data Results & Data ([facility]) Vital Signs (Past 12 Hours) Vital Signs Temp Pulse Pulse Resp BP Pulse Ox 08/04/21 10:37 36.4 C L 63 18 136/79 94 08/04/21 07:20 57 L 08/04/21 07:16 36.5 C 68 18 105/67 91 08/04/21 06:20 36.5 C 68 18 105/67 91 08/04/21 03:31 37 C 64 18 127/91 90 Laboratory Results Short CBC 08/04/21 Range/Units 03:36 WBC 4.97 (4.8-10.8) K/uL Hgb 8.8 L (12.0-16.0) g/dL Hct 28.9 L (37-47) % Plt Count 275 (130-400) K/uL BMP 08/04/21 03:36 Sodium 141 Potassium 4.1 Chloride 106 Carbon Dioxide 27 BUN 12 Creatinine 1.30 H Glucose 96 Calcium 9.4 (1) Pneumonia Laterality: right Lung location: middle lobe of lung Pneumonia type: due to unspecified organism Qualified Code(s): J18.9 - Pneumonia, unspecified organism (2) CKD (chronic kidney disease), stage III Chronic kidney disease stage 3 subtype: unspecified whether 3a or 3b Qualified Code(s): N18.30 - Chronic kidney disease, stage 3 unspecified
[2021-08-04] MEDS ORDERED: IRON SUCROSE 200 MG in 0.9 % SODIUM CHLORIDE 100 ML IV ONE (16:00)
[2021-08-04] MEDS: FAMOTIDINE 40 MG TABLET PO SCH (20:10)
[2021-08-04] MEDS: ASPIRIN 81 MG ECTAB PO SCH (20:11)
[2021-08-04] MEDS: SIMVASTATIN 20 MG TAB PO SCH (20:12)
[2021-08-04] MEDS: risperiDONE 1 MG TABLET PO SCH (20:13)
[2021-08-05] MEDS: AMPICILLIN/SULBACTAM SOD 3,000 MG in 0.9 % SODIUM CHLORIDE 100 ML IV SCH ×4 (04:27→21:18)
[2021-08-05] MEDS: INSULIN ASPART PER UNIT SC SCH ×4 (08:24→21:18)
[2021-08-05] MEDS: FERROUS SULFATE 325 MG TAB PO SCH (08:27)
[2021-08-05] MEDS: risperiDONE 0.5 MG TABLET PO SCH (08:28)
[2021-08-05] MEDS: CHOLECALCIFEROL 5,000 UNITS 125 MCG TAB PO SCH (08:28)
[2021-08-05] MEDS: PANTOprazole 40 MG TAB PO SCH (08:28)
[2021-08-05] MEDS: busPIRone 15 MG TAB PO SCH (08:28)
[2021-08-05] MEDS: ESCITALOPRAM OXALATE 10 MG TAB PO SCH (08:28)
[2021-08-05] MEDS: buPROPion XL 150 MG TABCR PO SCH (08:28)
[2021-08-05] MEDS: NICOTINE 21 MG/24 HR TDSY TD SCH (08:28)
[2021-08-05] MEDS: AMANTADINE HCL 100 MG CAPSULE PO SCH ×3 (08:29→21:05)
[2021-08-05] MEDS: hydrOXYzine HCl 25 MG TAB PO SCH ×2 (08:29→21:03)
[2021-08-05] MEDS: FLUTICASONE PROPIONATE NA SPR 16 GM BTL NAE SCH (08:29)
[2021-08-05] MEDS: GABAPENTIN 300 MG CAP PO SCH ×3 (08:29→21:06)
[2021-08-05 09:00] LABS: BUN Creatinine Ratio 9.6 (10-20); Creatinine Clr Calc Pharmacy 60.5 ml/min; Est GFR (African American) 52.5 ml/min; Est GFR (Non-African American) 45.3 ml/min
[2021-08-05] MEDS: DOXYCYCLINE HYCLATE 100 MG in DEXTROSE 5% 100 ML IV SCH ×2 (09:12→21:29)
--- NOTE | 2021-08-05 09:12 | Cardiology Progress Note ---
Date of Service August 05, 2021 Assessment & Plan (1) Tobacco use: (2) CKD (chronic kidney disease), stage III: (3) Diabetes mellitus, type 2: (4) [place] chorea: (5) Pneumonia: (6) Abnormal EKG: Plan: The patient has an intermittent left bundle branch block which may be rate related. Cardiac markers are negative. She is feeling better on antibiotics and I believe her symptoms are related to the pneumonia. Echocardiogram reveals no cardiomyopathy or wall motion abnormalities with suggest ischemic heart disease. I do not believe any additional work-up is indicated for the left bundle branch block at this time. Admission and Anticipated Discharge Date Admission Date: August 03, 2021 Review of Systems Review of Systems: Review of Systems: See HPI for pertinent positives. All other 10 point review of systems are negative. Physical Exam Physical Exam: General: no acute distress and stated age Head: normocephalic, no masses, lesions, tenderness or abnormalities Eyes: conjunctiva are pink and non-injected, sclera clear Neck: supple, no adenopathy, no bruits, normal jugular venous pulse, no hepatojugular reflux Chest: normal shape and normal respiratory effort Lungs: clear to auscultation and percussion Cardiac Exam: - regular rate & rhythm, no murmurs gallops or rubs - normal S1, normal S2 Pulses: 2(+) throughout Abdomen: abdomen soft, non-tender, no abnormal masses and no hepatosplenomegaly Musculoskeletal: no gait disturbance, no joint inflammation, no deforming arthritis Extremities: no edema and no cyanosis Neuro: grossly normal exam Results & Data ([facility]) Vital Signs (Past 12 Hours) Vital Signs Temp Pulse Pulse Resp BP Pulse Ox 08/05/21 08:13 36.7 C 58 L 18 104/65 91 08/05/21 07:18 73 08/05/21 05:00 74 08/05/21 03:07 36.6 C 71 16 116/72 88 L 08/04/21 22:00 36.9 C 73 18 115/73 91 Laboratory Results Laboratory Results - last 24 hr 08/04/21 08/04/21 08/04/21 09:16 11:53 16:33 Sodium Potassium Chloride Carbon Dioxide Anion Gap BUN Creatinine Est Cr Clr Drug Dosing Est GFR ( Amer) Est GFR (Non-Af Amer) BUN/Creatinine Ratio Glucose POC Glucose 138 H 126 H Calcium Troponin I High Sens 12.0 08/04/21 08/05/21 08/05/21 19:53 07:46 07:49 Sodium 140 Potassium 4.0 Chloride 104 Carbon Dioxide 29 Anion Gap 7 BUN 13 Creatinine 1.36 H Est Cr Clr Drug Dosing 60.5 Est GFR ( Amer) 52.5 Est GFR (Non-Af Amer) 45.3 BUN/Creatinine Ratio 9.6 L Glucose 124 H POC Glucose 126 H 144 H Calcium 9.0 Troponin I High Sens Medications Administered Current Inpatient Medications Acetaminophen (Acetaminophen 325 Mg Tab) 650 mg PO Q4H PRN PRN Reason: Pain or Fever Stop: 09/02/21 21:17 Albuterol (Albuterol Hfa 8 Gm Inhaler) 2 puffs INH QID PRN PRN Reason: Wheezing Stop: 09/02/21 21:17 Amantadine HCl (Amantadine Hcl 100 Mg Capsule) 100 mg PO TID [facility] Stop: 09/02/21 21:17 Last Admin: 08/05/21 08:29 Dose: 100 mg Documented by: Aspirin (Aspirin 81 Mg Ectab) 81 mg PO [facility] Stop: 09/02/21 21:17 Last Admin: 08/04/21 20:11 Dose: 81 mg Documented by: Bupropion HCl ([facility]ropion Xl 150 Mg Tabcr) [facility] Stop: 09/03/21 08:59 Last Admin: 08/05/21 08:28 Dose: 150 mg Documented by: Buspirone HCl (Buspirone 15 Mg Tab) 30 mg PO QAM [facility] Stop: 09/03/21 08:59 Last Admin: 08/05/21 08:28 Dose: 30 mg Documented by: Dextrose (Dextrose 50% 50 Ml Syringe) 25 - 50 ml IV UD PRN; Protocol PRN Reason: Hypoglycemia Protocol Stop: 09/02/21 21:17 Escitalopram Oxalate (Escitalopram Oxalate 10 Mg Tab) [facility] Stop: 09/03/21 08:59 Last Admin: 08/05/21 08:28 Dose: 10 mg Documented by: Famotidine (Famotidine 40 Mg Tablet) 40 mg PO [facility] Stop: 09/02/21 21:17 Last Admin: 08/04/21 20:10 Dose: 40 mg Documented by: Ferrous Sulfate (Ferrous Sulfate 325 Mg Tab) 325 mg PO QAM [facility] Stop: 09/04/21 08:59 Last Admin: 08/05/21 08:27 Dose: 325 mg Documented by: Fluticasone Propionate (Fluticasone Propionate Na Spr 16 Gm Btl) 2 sprays BRITTANY QAM [facility] Stop: 09/03/21 08:59 Last Admin: 08/05/21 08:29 Dose: 2 sprays Documented by: Gabapentin (Gabapentin 300 Mg Cap) 300 mg PO TID [facility] Stop: 09/02/21 21:17 Last Admin: 08/05/21 08:29 Dose: 300 mg Documented by: Glucagon (Glucagon For Inj 1 Mg Vial) 1 mg SQ UD PRN; Protocol PRN Reason: Hypoglycemia Protocol Stop: 09/02/21 21:17 Glucose (Glucose 10 Tabs/Tube) 4 - 8 tabs PO UD PRN; Protocol PRN Reason: Hypoglycemia Protocol Stop: 09/02/21 21:17 Glucose (Glucose 40% Gel 15 Gm Tube) 15 - 30 gm PO UD PRN; Protocol PRN Reason: Hypoglycemia Protocol Stop: 09/02/21 21:17 Hydroxyzine HCl (Hydroxyzine Hcl 25 Mg Tab) 25 mg PO BID [facility] Stop: 09/02/21 21:17 Last Admin: 08/05/21 08:29 Dose: 25 mg Documented by: Doxycycline Hyclate 100 mg/ (Dextrose) 110 mls @ 50 mls/hr IV Q12H [facility] Stop: 08/10/21 21:59 Last Infusion: 08/04/21 23:50 Dose: Infused Documented by: Ampicillin Sodium/Sulbactam Sodium 3,000 mg/ Sodium Chloride 108 mls @ 200 mls/hr IV Q6H [facility]; Protocol Stop: 08/10/21 21:59 Last Admin: 08/05/21 08:37 Dose: 200 mls/hr Documented by: Insulin Aspart (Insulin Aspart Per Unit) 0 units SC ACHS [facility] Stop: 09/02/21 21:17 Last Admin: 08/05/21 08:24 Dose: 3 units Documented by: Miscellaneous (Remove Nicoderm Patch) 1 ea N/A DAILY@[id number] [facility] Stop: 09/03/21 08:58 Last Admin: 08/05/21 08:27 Dose: 1 ea Documented by: Miscellaneous (Carbohydrates For Hypoglycemia ) 15 - 30 gm PO UD PRN PRN Reason: Hypoglycemia Protocol Stop: 09/02/21 21:17 Nicotine (Nicotine 21 Mg/24 Hr Tdsy) 21 mg TD QAM [facility] Stop: 09/02/21 21:17 Last Admin: 08/05/21 08:28 Dose: 21 mg Documented by: Pantoprazole Sodium (Pantoprazole 40 Mg Tab) 40 mg PO QAM [facility] Stop: 09/03/21 08:59 Last Admin: 08/05/21 08:28 Dose: 40 mg Documented by: Polyethylene Glycol (Polyethylene (Miralax) 17 Gm Pack) 17 gm PO DAILY PRN PRN Reason: Constipation Stop: 09/02/21 21:17 Risperidone (Risperidone 0.5 Mg Tablet) 0.25 mg PO DAILY [facility] Stop: 09/03/21 08:59 Last Admin: 08/05/21 08:28 Dose: 0.25 mg Documented by: Risperidone (Risperidone 1 Mg Tablet) 1 mg PO HS [facility] Stop: 09/02/21 21:17 Last Admin: 08/04/21 20:13 Dose: 1 mg Documented by: Simvastatin (Simvastatin 20 Mg Tab) 20 mg PO HS [facility] Stop: 09/02/21 21:17 Last Admin: 08/04/21 20:12 Dose: 20 mg Documented by: Tramadol HCl (Tramadol Hcl 50 Mg Tablet) 50 mg PO Q8H PRN PRN Reason: Pain Stop: 09/02/21 21:17 Vitamin D (Cholecalciferol 5,000 Units 125 Mcg Tab) 5,000 units PO DAILY [facility] Stop: 09/03/21 08:59 Last Admin: 08/05/21 08:28 Dose: 5,000 units Documented by: (1) CKD (chronic kidney disease), stage III Chronic kidney disease stage 3 subtype: unspecified whether 3a or 3b Qualified Code(s): N18.30 - Chronic kidney disease, stage 3 unspecified (2) Pneumonia Laterality: right Lung location: middle lobe of lung Pneumonia type: due to unspecified organism Qualified Code(s): J18.9 - Pneumonia, unspecified organism
--- NOTE | 2021-08-05 12:17 | Electrocardiogram Report ---
Test Reason : Blood Pressure : / mmHG Vent. Rate : 055 BPM Atrial Rate : 208 BPM P-R Int : 000 ms QRS Dur : 088 ms QT Int : 466 ms P-R-T Axes : 000 033 -67 degrees QTc Int : 445 ms Sinus bradycardia Abnormal ECG When compared with ECG of 04-AUG-2021 06:18, (unconfirmed) T wave inversion more evident in Inferior leads Confirmed by John Rhoades ([id number]) on 08/05/2021 12:17:46 PM Referred By: REFERRED SELF Confirmed By:Michael Rhoades
--- NOTE | 2021-08-05 12:29 | Electrocardiogram Report ---
Test Reason : Blood Pressure : / mmHG Vent. Rate : 069 BPM Atrial Rate : 069 BPM P-R Int : 132 ms QRS Dur : 092 ms QT Int : 418 ms P-R-T Axes : 050 081 095 degrees QTc Int : 447 ms Normal sinus rhythm T wave abnormality, consider anterior ischemia Abnormal ECG When compared with ECG of 04-AUG-2021 10:40, (unconfirmed) Nonspecific T wave abnormality has replaced inverted T waves in Inferior leads T wave inversion no longer evident in Lateral leads Confirmed by John Rhoades ([id number]) on 08/05/2021 12:28:53 PM Referred By: REFERRED SELF Confirmed By:Michael Rhoades
--- NOTE | 2021-08-05 12:33 | Electrocardiogram Report ---
Test Reason : Blood Pressure : / mmHG Vent. Rate : 060 BPM Atrial Rate : 060 BPM P-R Int : 176 ms QRS Dur : 086 ms QT Int : 466 ms P-R-T Axes : 024 086 175 degrees QTc Int : 466 ms Normal sinus rhythm Prolonged QT Abnormal ECG When compared with ECG of 03-AUG-2021 13:49, Left bundle branch block is no longer Present Confirmed by John Rhoades ([id number]) on 08/05/2021 12:32:52 PM Referred By: REFERRED SELF Confirmed By:Michael Rhoades
[2021-08-05] MEDS: guaiFENesin 600 MG TABCR PO SCH ×2 (13:05→21:06)
--- NOTE | 2021-08-05 16:26 | Hospitalist Progress Note ---
Date of Service August 05, 2021 Assessment & Plan (1) Pneumonia: Plan: Patient is a 51 yr female with H/O Emanuel's, DM II, chronic anemia, dyslipidemia, CKD III, depression, anxiety, GERD, COPD, tobacco use presented to ER with complaint of nonproductive cough x 1-2 weeks, chills, SOB with exertion, denies chest pain. Pneumonia Likely secondary to aspiration --CXR: Ill-defined 5.3 cm airspace opacity of the lateral right mid to lower lung suspicious for pneumonia Normal Lactate, Procalcitonin Negative SARS-CoV-2 PCR, negative influenza PCR, negative RSV PCR. --Blood cultures Negative to date Continue Unasyn, Doxy Appreciate Speech Therapy eval Aspiration precautions Incentive spirometer, flutter valve Saturating well on room air Added Mucinex (2) Elevated troponin: Plan: New LBBB Normal troponin ECHO : No wall motion abnormality Appreciate cardiology input Intermittent left bundle branch block likely rate related as per cardiology No further work-up needed as per cardiology (3) Diabetes mellitus, type 2: Plan: A1c: 8.6 on 05/31/2021 Hold home medication Novolog sliding scale per protocol (4) Anemia: Plan: Acute on chronic microcytic anemia Anemia work-up suggestive of iron deficiency anemia Normal folate, vitamin B12 No acute bleeding issues Continue Iron supplements (5) [place] chorea: Plan: chronic, stable, continue home meds Ambulates with walker at baseline. Fall precautions PT/OT (6) RLS (restless legs syndrome): Plan: Follows with neurology at [facility] Continue gabapentin, risperidone, amantadine (7) Hyperlipidemia: Plan: Continue simvastatin (8) CKD (chronic kidney disease), stage III: Plan: Baseline: 1.3-1.5 Monitor renal functions (9) Depression: Plan: Anxiety, Depression Continue Lexapro, buspirone, hydroxyzine (10) GERD (gastroesophageal reflux disease): Plan: Continue PPI and H2 sandra (11) Tobacco use: Plan: Smoking cessation encouraged Nicotine patch DVT Px SCDs Code Status Full Code Admission and Anticipated Discharge Date Admission Date: August 03, 2021 Subjective Patient is seen and examined at bedside States feeling better today Cough, dyspnea improved Still slightly feels congested No other complaints Review of Systems Review of Systems: All systems reviewed & are unremarkable except as noted in Subjective Physical Exam Physical Exam: Physical Exam: Vitals signs as noted above General Appearance:Obese, no apparent distress Head: normocephalic, Atraumatic Eyes: normal inspection, EOMI Neck: supple, Trachea midline Respiratory/Chest: Decreased breath sounds, CTA, No accessory muscle use Cardiovascular: S1, S2, No murmur Abdomen/GI:Soft, Non tender, Bowel sounds present Extremities/Musculoskeletal:normal inspection, no edema Neurologic/Psych:AAOX3, grossly no focal neurological deficits Skin: normal color, warm Results & Data Results & Data ([facility]) Vital Signs (Past 12 Hours) Vital Signs Temp Pulse Pulse Resp BP BP Pulse Ox 08/05/21 15:00 73 08/05/21 14:40 36.6 C 82 18 135/87 96 08/05/21 11:13 36.8 C 80 18 125/77 91 08/05/21 08:13 36.7 C 58 L 18 104/65 91 08/05/21 07:18 73 08/05/21 05:00 74 Laboratory Results [facility] 08/05/21 07:46 Sodium 140 Potassium 4.0 Chloride 104 Carbon Dioxide 29 BUN 13 Creatinine 1.36 H Glucose 124 H Calcium 9.0 (1) Pneumonia Laterality: right Lung location: middle lobe of lung Pneumonia type: due to unspecified organism Qualified Code(s): J18.9 - Pneumonia, unspecified organism (2) CKD (chronic kidney disease), stage III Chronic kidney disease stage 3 subtype: unspecified whether 3a or 3b Qualified Code(s): N18.30 - Chronic kidney disease, stage 3 unspecified
[2021-08-05] MEDS: SIMVASTATIN 20 MG TAB PO SCH (21:02)
[2021-08-05] MEDS: FAMOTIDINE 40 MG TABLET PO SCH (21:04)
[2021-08-05] MEDS: risperiDONE 1 MG TABLET PO SCH (21:04)
[2021-08-05] MEDS: ASPIRIN 81 MG ECTAB PO SCH (21:06)
[2021-08-06] MEDS: AMPICILLIN/SULBACTAM SOD 3,000 MG in 0.9 % SODIUM CHLORIDE 100 ML IV SCH ×2 (04:14→11:22)
[2021-08-06 06:56] LABS: Hematocrit (blood only) 29.3 % (37-47); Mean Corpuscular Hemoglobin 24.1 pg (25-34); Mean Corpuscular Hgb Conc 30.7 g/dL (32-36); Mean Corpuscular Volume 78.3 fL (80-100); Mean Platelet Volume 8.9 fL (7.4-10.4); Platelet Count 298 K/uL (130-400); RDW Coefficient of Variation 19.8 % (11.5-14.5); RDW Standard Deviation 57.6 fL (36.4-46.3); Red Blood Count 3.74 M/uL (4.2-5.4); White Blood Count 5.39 K/uL (4.8-10.8)
[2021-08-06 07:08] LABS: BUN Creatinine Ratio 10.1 (10-20); Creatinine Clr Calc Pharmacy 51.6 ml/min; Est GFR (African American) 43.4 ml/min; Est GFR (Non-African American) 37.5 ml/min; Potassium 3.8 mmol/L (3.5-5.1)
[2021-08-06] MEDS: NICOTINE 21 MG/24 HR TDSY TD SCH (07:59)
[2021-08-06] MEDS: AMANTADINE HCL 100 MG CAPSULE PO SCH ×2 (08:00→13:55)
[2021-08-06] MEDS: FLUTICASONE PROPIONATE NA SPR 16 GM BTL NAE SCH (08:00)
[2021-08-06] MEDS: risperiDONE 0.5 MG TABLET PO SCH (08:01)
[2021-08-06] MEDS: PANTOprazole 40 MG TAB PO SCH (08:01)
[2021-08-06] MEDS: busPIRone 15 MG TAB PO SCH (08:01)
[2021-08-06] MEDS: ESCITALOPRAM OXALATE 10 MG TAB PO SCH (08:02)
[2021-08-06] MEDS: FERROUS SULFATE 325 MG TAB PO SCH (08:02)
[2021-08-06] MEDS: CHOLECALCIFEROL 5,000 UNITS 125 MCG TAB PO SCH (08:02)
[2021-08-06] MEDS: GABAPENTIN 300 MG CAP PO SCH ×2 (08:03→13:55)
[2021-08-06] MEDS: buPROPion XL 150 MG TABCR PO SCH (08:03)
[2021-08-06] MEDS: hydrOXYzine HCl 25 MG TAB PO SCH (08:04)
[2021-08-06] MEDS: INSULIN ASPART PER UNIT SC SCH ×2 (08:19→12:19)
[2021-08-06] MEDS: guaiFENesin 600 MG TABCR PO SCH (11:22)
[2021-08-06] MEDS: DOXYCYCLINE HYCLATE 100 MG in DEXTROSE 5% 100 ML IV SCH (12:07)
--- NOTE | 2021-08-06 13:13 | Cardiology Progress Note ---
Date of Service August 06, 2021 Assessment & Plan (1) Tobacco use: (2) CKD (chronic kidney disease), stage III: (3) Diabetes mellitus, type 2: (4) [place] chorea: (5) Pneumonia: (6) Abnormal EKG: Plan: The patient has an intermittent left bundle branch block which may be rate related. Cardiac markers are negative. She is feeling better on antibiotics and I believe her symptoms are related to the pneumonia. Echocardiogram reveals no cardiomyopathy or wall motion abnormalities with suggest ischemic heart disease. I do not believe any additional work-up is indicated for the left bundle branch block at this time. Recurrent rate related left bundle overnight. Admission and Anticipated Discharge Date Admission Date: August 03, 2021 Subjective Patient seen and examined, chart reviewed. Telemetry reviewed: Normal sinus rhythm with transient rate related left bundle branch block overnight. Review of Systems Review of Systems: All systems reviewed & are unremarkable except as noted in HPI & below Results & Data ([facility]) Vital Signs (Past 12 Hours) Vital Signs Temp Pulse Pulse Resp BP Pulse Ox 08/06/21 12:00 36.8 C 80 18 143/75 H 96 08/06/21 07:37 36.5 C 69 18 127/73 94 08/06/21 03:45 76 08/06/21 03:34 36.8 C 71 18 112/71 92 (1) CKD (chronic kidney disease), stage III Chronic kidney disease stage 3 subtype: unspecified whether 3a or 3b Qualified Code(s): N18.30 - Chronic kidney disease, stage 3 unspecified (2) Pneumonia Laterality: right Lung location: middle lobe of lung Pneumonia type: due to unspecified organism Qualified Code(s): J18.9 - Pneumonia, unspecified organism
--- NOTE | 2021-08-06 14:23 | Hospitalist Progress Note ---
Date of Service August 06, 2021 Assessment & Plan (1) Pneumonia: Plan: Patient is a 51 yr female with H/O Barbour's, DM II, chronic anemia, dyslipidemia, CKD III, depression, anxiety, GERD, COPD, tobacco use presented to ER with complaint of nonproductive cough x 1-2 weeks, chills, SOB with exertion, denies chest pain. Pneumonia Likely secondary to aspiration --CXR: Ill-defined 5.3 cm airspace opacity of the lateral right mid to lower lung suspicious for pneumonia Normal Lactate, Procalcitonin Negative SARS-CoV-2 PCR, negative influenza PCR, negative RSV PCR. --Blood cultures Negative to date Continue Unasyn, Doxy Appreciate Speech Therapy eval Aspiration precautions Incentive spirometer, flutter valve Saturating well on room air Added Mucinex Clinically improved Plan to discharge on oral antibiotics to complete the course (2) Elevated troponin: Plan: New LBBB Normal troponin ECHO : No wall motion abnormality Appreciate cardiology input Intermittent left bundle branch block likely rate related as per cardiology No further work-up needed as per cardiology (3) Diabetes mellitus, type 2: Plan: A1c: 8.6 on 05/31/2021 Hold home medication Novolog sliding scale per protocol (4) Anemia: Plan: Acute on chronic microcytic anemia Anemia work-up suggestive of iron deficiency anemia Normal folate, vitamin B12 No acute bleeding issues Continue Iron supplements (5) Nathalie chorea: Plan: chronic, stable, continue home meds Ambulates with walker at baseline. Fall precautions PT/OT : Recommends to return Home (6) RLS (restless legs syndrome): Plan: [place] [facility] Continue gabapentin, risperidone, amantadine (7) Hyperlipidemia: Plan: Continue simvastatin (8) CKD (chronic kidney disease), stage III: Plan: Baseline: 1.3-1.5 Monitor renal functions (9) Depression: Plan: Anxiety, Depression Continue Lexapro, buspirone, hydroxyzine (10) GERD (gastroesophageal reflux disease): Plan: Continue PPI and H2 sandra (11) Tobacco use: Plan: Smoking cessation encouraged Nicotine patch DVT Px SCDs Code Status Full Code Admission and Anticipated Discharge Date Admission Date: August 03, 2021 Subjective Patient is seen and examined at bedside Doing well today Chest Congestion, cough improved Denies chest pain, dyspnea, nausea, abd pain Offers no other complaints Review of Systems Review of Systems: All systems reviewed & are unremarkable except as noted in Subjective Physical Exam Physical Exam: Physical Exam: Vitals signs as noted above General Appearance:Obese, no apparent distress Head: normocephalic, Atraumatic Eyes: normal inspection, EOMI Neck: supple, Trachea midline Respiratory/Chest: Decreased breath sounds, CTA, No accessory muscle use Cardiovascular: S1, S2, No murmur Abdomen/GI:Soft, Non tender, Bowel sounds present Extremities/Musculoskeletal:normal inspection, no edema Neurologic/Psych:AAOX3, grossly no focal neurological deficits Skin: normal color, warm Results & Data Results & Data ([facility]) Vital Signs (Past 12 Hours) Vital Signs Temp Pulse Pulse Resp BP Pulse Ox 08/06/21 12:00 36.8 C 80 18 143/75 H 96 08/06/21 08:00 94 H 08/06/21 07:37 36.5 C 69 18 127/73 94 08/06/21 03:45 76 08/06/21 03:34 36.8 C 71 18 112/71 92 Laboratory Results Short CBC 08/06/21 Range/Units 06:17 WBC 5.39 (4.8-10.8) K/uL Hgb 9.0 L (12.0-16.0) g/dL Hct 29.3 L (37-47) % Plt Count 298 (130-400) K/uL BMP 08/06/21 06:17 Sodium 140 Potassium 3.8 Chloride 105 Carbon Dioxide 27 BUN 16 Creatinine 1.59 H Glucose 123 H Calcium 9.0 (1) Pneumonia Laterality: right Lung location: middle lobe of lung Pneumonia type: due to unspecified organism Qualified Code(s): J18.9 - Pneumonia, unspecified organism (2) CKD (chronic kidney disease), stage III Chronic kidney disease stage 3 subtype: unspecified whether 3a or 3b Qualified Code(s): N18.30 - Chronic kidney disease, stage 3 unspecified
--- NOTE | 2021-08-06 14:41 | Discharge Summary ---
Date of Service August 06, 2021 Admission HPI Per Admitting Provider Patient is 51-year-old female with PMH Londonderry's, DM II, chronic anemia, dyslipidemia, CKD III, depression, anxiety, GERD, COPD, tobacco use presented to ER with complaint of nonproductive cough x 1-2 weeks. Patient reports feels like cough is getting worse. Has been having some chills. Has not been taking her temperature at home. Patient reports feeling short of breath with exertion for the past week. Denies any chest pain. Patient reports does choke sometimes. 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 Follows with [facility] neurology. At baseline patient reports she uses her albuterol inhaler twice a day. She has been using albuterol more the past week since her cough, does not feel like it has helped with cough. No other OTC treatment used. Baseline ambulatory dysfunction, has walker at home but reports often does not use it. Reports frequent falls. States fall several days ago and fell onto knee, denies any injury. Denies increased weakness. Denies ill contacts, diaphoresis, N/V/D/C, FOSTER, dizziness, syncope, vision changes, neck pain, orthopnea, palpitations, sore throat, otalgia, rhinorrhea, abdominal pain, paresthesias, extremity edema, rashes, urinary symptoms. In ER patient afebrile, vital stable, 95% on room air. No leukocytosis. Lactate and procalcitonin WNL. Negative SARS-CoV-2 PCR, negative influenza PCR, negative RSV PCR. CXR: Opacity right mid to lower lung Admission Exam Per Admitting Provider Physical Exam Physical Exam: General: no distress, obese Head: normocephalic, atraumatic Eyes: PERRL, EOM's intact, conjunctiva non-injected, anicteric ENT: normal inspection external ears, nose, mucous membranes moist Neck: supple, trachea midline Lungs: clear, no respiratory distress, 95% on RA, no wheezing/rhonchi/rales appreciated CV: RRR, no murmur, no pretibial edema Abd: protuberant, normal BS, soft, non-tender Ext: no cyanosis, no calf tenderness Neuro: A&O x 3, some slow responses intermittently (at baseline per family), +chorea movements noted, flat affect Skin: warm, dry Principal Diagnosis Pneumonia Left bundle branch block Discharge Data Allergies Allergy/AdvReac Type Severity Reaction Status Date / Time No Known Allergies Allergy Verified 08/03/21 15:01 Consultations 08/03/21 16:41 ED Decision to Admit Stat 08/03/21 21:18 Consult Cardiology Routine Hospital Course (1) Pneumonia: Patient is a 51 yr female with H/O Londonderry's, DM II, chronic anemia, dyslipidemia, CKD III, depression, anxiety, GERD, COPD, tobacco use presented to ER with complaint of nonproductive cough x 1-2 weeks, chills, SOB with exertion, denies chest pain. Pneumonia Likely secondary to aspiration --CXR: Ill-defined 5.3 cm airspace opacity of the lateral right mid to lower lung suspicious for pneumonia Normal Lactate, Procalcitonin Negative SARS-CoV-2 PCR, negative influenza PCR, negative RSV PCR. --Blood cultures Negative to date Continue Unasyn, Doxy Appreciate Speech Therapy eval Aspiration precautions Incentive spirometer, flutter valve Saturating well on room air Added Mucinex Clinically improved Plan to discharge on oral antibiotics to complete the course (2) Elevated troponin: New LBBB Normal troponin ECHO : No wall motion abnormality Appreciate cardiology input Intermittent left bundle branch block likely rate related as per cardiology No further work-up needed as per cardiology (3) Diabetes mellitus, type 2: A1c: 8.6 on 05/31/2021 Hold home medication Novolog sliding scale per protocol (4) Anemia: Acute on chronic microcytic anemia Anemia work-up suggestive of iron deficiency anemia Normal folate, vitamin B12 No acute bleeding issues Continue Iron supplements (5) Londonderry chorea: chronic, stable, continue home meds Ambulates with walker at baseline. Fall precautions PT/OT : Recommends to return Home (6) RLS (restless legs syndrome): Follows with neurology at [facility] Continue gabapentin, risperidone, amantadine (7) Hyperlipidemia: Continue simvastatin (8) CKD (chronic kidney disease), stage III: Baseline: 1.3-1.5 Monitor renal functions (9) Depression: Anxiety, Depression Continue Lexapro, buspirone, hydroxyzine (10) GERD (gastroesophageal reflux disease): Continue PPI and H2 sandra (11) Tobacco use: Smoking cessation encouraged Nicotine patch DVT Px SCDs Code Status Full Code Total Time Total Time Spent Total Time Spent (In Minutes): 44 minutes Discharge Plan Discharge Items Patient Disposition: Home - Self-Care Reason For Visit: PNEUMONIA Discharge Diagnosis: Pneumonia Left bundle branch block Activity: Per Instructions section Exercise/Sports: Gradually increase as tolerated Non-emergency contact: Primary Care Provider and Medical Genetics Director Call non-emergency contact if: you have any medication questions, your symptoms worsen, your pain is concerning for you and you have a fever Follow-up/Referrals: Mandi Johnson MD [Primary Care Provider] - (Date & Time 08/13/2021 10:20 AM Provider Madeline Blanco MD Department General Internal Medicine [facility] ) Diet: Carb Consistent or DM2 and Heart Healthy Diet Texture: Easy to Chew Addtl Attending Provider Instructions: Follow up with your primary care physician on 08/13/2021 10:20 AM Follow-up with your sign painter in 4-6 weeks --- Please antibiotic course doxycycline, Augmentin for 4 more days as p rescribed. --- Final blood cultures are pending at the time of discharge. Follow-up with your physician for results. Seek immediate medical attention if your symptoms reoccur or worsen Please take all medications as instructed on discharge list below. Please call if you have any questions or problems. You can reach a [facility] hospitalist on duty at [facility] 24 hours a day by calling [phone] Pending Studies at Discharge: Yes Studies:: Blood Cultures Stand-Alone Forms: My [facility], Smoking Cessation Medications and DC Order Prescriptions: New ferrous sulfate 325 mg (65 mg iron) Tablet,Delayed Release (Dr/Ec) 325 mg PO QAM Qty: 30 RF: 1 guaifenesin [Mucinex] 600 mg Tablet Extended Release 12hr 600 mg PO Q12 Qty: 8 RF: 0 doxycycline hyclate 100 mg tablet 100 mg PO BID 4 Days Qty: 8 RF: 0 amoxicillin-pot clavulanate [Augmentin] 500-125 mg tablet 1 tab PO BID Qty: 8 RF: 0 Continued polyethylene glycol 3350 [Miralax] 17 gram Powder In Packet 17 g PO DAILY PRN (Reason: Constipation) RF: 0 aspirin [Aspir-81] 81 mg Tablet,Delayed Release (Dr/Ec) 81 mg PO HS RF: 0 amantadine HCl 100 mg Capsule 100 mg PO TID RF: 0 pantoprazole [Protonix] 20 mg Tablet,Delayed Release (Dr/Ec) 20 mg PO QAM RF: 0 simvastatin 20 mg Tablet 20 mg PO HS RF: 0 buspirone 30 mg Tablet 30 mg PO QAM RF: 0 promethazine 25 mg Tablet 25 mg PO QID PRN (Reason: Nausea) RF: 0 gabapentin [Neurontin] 300 mg Capsule 300 mg PO TID RF: 0 hydroxyzine HCl 25 mg Tablet 25 mg PO BID RF: 0 lorazepam 1 mg Tablet 1 mg PO DAILY PRN (Reason: Anxiety) RF: 0 fluticasone propionate [Flonase Allergy Relief] 50 mcg/actuation [place],Suspension 2 spray INTRANASAL QAM RF: 0 escitalopram oxalate [Lexapro] 10 mg Tablet 10 mg PO QAM RF: 0 tramadol 50 mg Tablet 50 mg PO Q8H PRN (Reason: Pain) RF: 0 calcium carbonate [Tums] 200 mg calcium (500 mg) Tablet,Chewable 200 mg PO TID PRN (Reason: Heartburn) RF: 0 albuterol sulfate [Ventolin HFA] 90 mcg/actuation Hfa Aerosol Inhaler 2 puff INHALATION QID PRN (Reason: Wheezing) RF: 0 bupropion HCl [Wellbutrin XL] 150 mg Tablet Extended Release 24 Hr 150 mg PO QAM RF: 0 famotidine 40 mg tablet 40 mg PO HS RF: 0 risperidone 0.25 mg Tablet 0.25 mg PO DAILY RF: 0 risperidone 1 mg Tablet 1 mg PO HS RF: 0 glipizide 5 mg tablet 10 mg PO DAILYBB RF: 0 glipizide 5 mg tablet 15 mg PO DAILYBD RF: 0 cholecalciferol (vitamin D3) [Vitamin D3] 125 mcg (5,000 unit) Tablet 5,000 unit PO DAILY RF: 0 Ozempic 0.25 mg or 0.5 mg(2 mg/1.5 mL) pen injector 0.25 mg SUBCUT UD RF: 0 Discharge Orders: Discharge Order (Routine); Ordered 08/06/21 Ordered By: Scot Sutton Admission Data Admit Date/Time: 08/03/21 19:16 Attending Provider: Scot Sutton Admit Provider: Butts,Ama M. Primary Care Provider: Mandi Johnson Other Providers: Ama Oneil ; Delmar Peralta
--- NOTE | 2021-08-06 18:46 | Electrocardiogram Report ---
Test Reason : Blood Pressure : / mmHG Vent. Rate : 073 BPM Atrial Rate : 073 BPM P-R Int : 154 ms QRS Dur : 086 ms QT Int : 412 ms P-R-T Axes : 027 022 -25 degrees QTc Int : 453 ms Normal sinus rhythm T wave abnormality, consider lateral ischemia Abnormal ECG When compared with ECG of 05-AUG-2021 05:50, Questionable change in QRS axis T wave inversion now evident in Lateral leads Confirmed by John Rhoades ([id number]) on 08/06/2021 6:45:31 PM Referred By: REFERRED SELF Confirmed By:Michael Rhoades
== END 2021-08-06 16:15 | disposition home or self-care (01) | DRG 178 ==
LOC: ED 13:14 → SUATTDRO 19:16 → 2N 19:16